=== PATIENT | male | born 1985 | race Caucasian/White ===

== ENCOUNTER 2021-04-15 12:42 | Emergency (ER) | payer MEDICAID, SELFPAY ==
--- NOTE | 2021-04-15 | ECG_ITS ---
Test Reason : CHEST PAIN Blood Pressure : / mmHG Vent. Rate : 061 BPM Atrial Rate : 061 BPM P-R Int : 126 ms QRS Dur : 104 ms QT Int : 390 ms P-R-T Axes : 031 051 033 degrees QTc Int : 392 ms Normal sinus rhythm with sinus arrhythmia Normal ECG No previous ECGs available Referred By: Generic ED Physician Electronically Signed By:KOSTA FRANKLIN
--- NOTE | ~2021-04-15 | XR_ITS ---
EXAMINATION: XR CHEST CLINICAL INFORMATION: Chest pain COMPARISON: None TECHNIQUE: 2 views of the chest were obtained. FINDINGS: No significant abnormality is noted involving the heart, lungs, mediastinum, bony thorax or soft tissues. XR/XR chest 2V IMPRESSION: Unremarkable examination.
[2021-04-15 12:45] VITALS: BP 126/70; PULSE 64; RESP 16; TEMP 36.6; O2SAT 98; BMI 38.0
[2021-04-15 15:59] LABS: MANUAL DIFF FLAG NO
[2021-04-15 16:06] LABS: Basophils Absolute Auto 0.1 X10*3/uL (0.0-0.2); Basophils Percent Auto 0.5 % (0-2); Eosinophils Absolute Auto 0.1 X10*3/uL (0.0-0.4); Eosinophils Percent Auto 1.3 % (0-4); Hemoglobin 15.2 g/dl (14.0-18.0); Imm Gran Abs Auto 0.04 X10*3/uL (0.00-0.03); Imm Gran Pct Auto 0.4 % (0.0-0.4); Lymphocytes Absolute Auto 3.2 X10*3/uL (1.2-4.9); Lymphocytes Percent Auto 30.5 % (20-40); Mean Corpuscular Hemoglobin 28.5 pg (27.0-33.0); Mean Corpuscular Volume 86.3 fL (80-98); Mean Platelet Volume 8.7 fL (9.4-12.4); Monocytes Absolute Auto 0.7 X10*3/uL (0.1-1.2); Monocytes Percent Auto 6.7 % (2-11); Neutrophils Absolute Auto 6.4 X10*3/uL (2.0-8.3); Neutrophils Percent Auto 60.6 % (45-73); Platelet Count 388 X10*3/uL (160-400); Red Blood Count 5.33 X10*6/uL (4.60-5.80); Red Cell Distribution Width 14.6 % (11.0-16.0); White Blood Count 10.5 X10*3/uL (4.8-10.8)
[2021-04-15 16:19] LABS: Alanine Aminotransferase 34 U/L (0-40); Albumin Level 4.3 g/dL (3.5-5.0); Alkaline Phosphatase 58 U/L (39-117); Anion Gap 11 (12-20); Aspartate Amino Transferase 20 U/L (5-37); Bilirubin Total 0.4 mg/dL (0.0-1.0); Blood Urea Nitrogen 10 mg/dL (9-16); Calcium 9.6 mg/dL (8.4-10.2); Carbon Dioxide 28 mmol/L (22-29); Chloride 104 mmol/L (96-108); Creatinine Clr Calc Pharmacy 148.2; Estimated Glomerular Filt Rate > 60; Glucose Random 99 mg/dL (60-115); Potassium 4.8 mmol/L (3.3-5.1); Sodium 138 mmol/L (135-145); Total Protein 7.4 g/dL (6.5-8.0)
--- NOTE | 2021-04-15 16:43 | ED.DIZZY ---
HPI - Dizziness General Chief Complaint: Dizziness Stated Complaint: dizziness Time Seen by Provider: 04/15/21 16:16 Source: patient Mode of arrival: ambulatory Limitations: no limitations History of Present Illness HPI Narrative: 35 yo male here with complaints of dizziness since 0100. Woke up in the night and felt dizzy. Went back to bed and woke with continued dizziness. Worsened with head movement, bending over and laying flat. +nausea. No vomiting, headache, vision changes, neck pain. No recent illness. Also c/o right sided chest discomfort with associated numbness intermittent x months. No associated cough, SOB, fevers, chills, leg swelling/pain. Worsened with position changes, palpation. Related Data Previous Rx's Medication Instructions Recorded meclizine 25 mg tablet 25 mg PO TID PRN #14 tab 04/15/21 Allergies Allergy/AdvReac Type Severity Reaction Status Date / Time No Known Allergies Allergy Unverified 04/10/20 15:30 [No Known Allergies*] Review of Systems Review of Systems: Yes all other systems are reviewed and are negative Constitutional: Constitutional: Reports no additional constitutional complaints, Denies body ache(s), Denies chills, Denies fever(s), Denies headache(s) and Denies weakness Eyes: Eyes: Reports no additional eye complaints and Denies change in vision ENT: Reports system reviewed and no additional complaints, except as documented, Reports dizziness, Denies headache(s), Denies nasal congestion, Denies nasal discharge and Denies neck pain Cardiovascular: Cardiovascular: Reports no additional cardiovascular complaints, Reports chest pain, Denies leg edema and Denies dyspnea Respiratory: Respiratory: Reports no additional respiratory complaints, Denies cough and Denies dyspnea Gastrointestinal: Gastrointestinal: Reports no additional gastrointestinal complaints, Denies abdominal pain, Denies diarrhea, Denies nausea and Denies vomiting Genitourinary: Genitourinary: Denies urinary incontinence Musculoskeletal: Musculoskeletal: Reports no additional musculoskeletal complaints, Denies back pain, Denies arthralgias, Denies joint swelling, Denies neck pain, Denies numbness and Denies tingling Integumentary/Breasts: Skin/Breast: Reports system reviewed and no additional complaints, except as docu and Denies rash Neurologic: Reports system reviewed and no additional complaints, except as documented, Denies Abnormal speech present, Reports dizziness, Denies headache(s), Denies numbness, Denies tingling and Denies weakness [facility] Past Medical History Attestation statement: The following information was validated with the patient. Source: old records reviewed and nursing notes reviewed Social History Social History Alcohol intake: unknown Patient Tobacco Use Status: Tobacco use Unknown Advance Directives: No Advance Directives Information Provided: No Physical Exam Vital Signs: Vital Signs: Last Vital Signs Temp 98 F 04/15/21 12:45 Pulse 63 04/15/21 18:00 Resp 18 04/15/21 16:57 BP 103/67 04/15/21 18:00 Pulse Ox 99 04/15/21 18:00 Body Mass Index 38.0 Const: General: cooperative, healthy appearing, comfortable and no acute distress Orientation/consciousness: patient oriented x3 Limitations: no limitations HENMT: Head: Yes normal to inspection Ears: hearing grossly normal bilaterally and TM's normal bilaterally General nose exam: Normal external nose present Face and sinus: Yes normal facial exam Mouth: Normal oral and palatal mucosa present Throat: Yes posterior oropharynx normal Eyes: General: appearance normal, both eyes and all related structures Visual Bella: normal visual bella by confrontation Alignment and Position: alignment normal Periorbital: periorbital findings normal Eyelids: Yes eyelids normal Conjunctivae: conjunctivae normal Sclerae: sclerae normal Corneas: corneas normal Pupils: Equal, round and reactive pupils present EOM: EOMs intact bilaterally Direct Ophthalmoscopy: normal light reflex and no photophobia Neck: Neck: Yes normal visual inspection Chest: Chest palpation & inspection: normal inspection of the chest Resp: Effort & Inspection: normal respiratory effort Auscultation: clear to auscultation bilaterally Cardio: Rate: regular rate Rhythm: regular rhythm Peripheral pulses: Peripheral pulses 2+ throughout GI: Inspection: Yes normal to inspection Palpation (GI): Soft to palpation and nontender Auscultation: normal bowel sounds Back/Spine/Pelvis: Thoracic/Lumbar Spine: thoracic and lumbar spine normal to inspection Skin: General skin exam: no rashes or lesions noted Neuro: Other: dizziness reproduced by movement of head from right to left General: patient oriented x3, no focal motor deficits and normal sensation to monofilament Cranial nerves: Yes CN's II-XII intact bilaterally, Yes Equal, round and reactive pupils present, Yes Bilaterally intact EOM present, Yes Normal facial strength present and Yes Midline tongue present Cognition (Neuro): normal cognition Speech: No Abnormal speech present Gait exam (Neuro): Normal gait present Motor exam (neuro): 5/5 motor strength present throughout Sensory Exam: Normal double simultaneous stimulation for sensation Coordination: [id number] test normal, [id number] test normal and tandem gait normal Extrem: General: Yes normal to inspection Course Course Course Narrative: 35 yo male here with complaints of dizziness with head movement, bending over since 0100. Normal neuro exam. HD stable. Likely vertigo. Trial meclizine. Also right sided chest discomfort more MS seeming based on HPI for months. Will check EKG, labs, CXR. 1800-patient feels like his dizziness is improved. He was able to ambulate without any reproducible symptoms. Chest x-ray, labs and EKG unremarkable. ? Costochondritis. Symptoms for greater than several weeks. Patient can follow up with his primary doctor. Reviewed worrisome signs/symptoms and when to return to Ed. Comfortable with discharge home. MDM - Dizziness MDM Narrative Medical decision making narrative: less likely ACS with symptoms for months normal ekg, troponin, atypical chest pain less likely CVA with atypical symptoms, normal neuro exam, symptoms improved with meclizine Medical Records Attestation: I reviewed the patient's medical records. Lab Data Attestation: I reviewed the patient's lab results. Result diagrams: 04/15/21 15:40 04/15/21 15:40 Labs: Lab Results 04/15/21 04/15/21 04/15/21 Range/Units 15:40 15:40 17:07 WBC 10.5 (4.8-10.8) X10*3/uL RBC 5.33 (4.60-5.80) X10*6/uL Hgb 15.2 (14.0-18.0) g/dl Hct 46.0 (42-52) % MCV 86.3 (80-98) fL MCH 28.5 (27.0-33.0) pg MCHC 33.0 (31.0-36.0) g/dl RDW 14.6 (11.0-16.0) % Plt Count 388 (160-400) X10*3/uL MPV 8.7 L (9.4-12.4) fL Immature Gran % (Auto) 0.4 (0.0-0.4) % Neut % (Auto) 60.6 (45-73) % Lymph % (Auto) 30.5 (20-40) % [place] % (Auto) 6.7 (2-11) % Eos % (Auto) 1.3 (0-4) % Baso % (Auto) 0.5 (0-2) % Lymph # (Auto) 3.2 (1.2-4.9) X10*3/uL [place] # (Auto) 0.7 (0.1-1.2) X10*3/uL Eos # (Auto) 0.1 (0.0-0.4) X10*3/uL Baso # (Auto) 0.1 (0.0-0.2) X10*3/uL Abs Immat Gran (auto) 0.04 H (0.00-0.03) X10*3/uL Absolute Neuts (auto) 6.4 (2.0-8.3) X10*3/uL Absolute Nucleated RBC 0.000 (0.0-0.012) X10*3/uL Nucleated RBC % (auto) 0.0 (0.0-0.2) /100WBC Sodium 138 (135-145) mmol/L Potassium 4.8 (3.3-5.1) mmol/L Chloride 104 (96-108) mmol/L Carbon Dioxide 28 (22-29) mmol/L Anion Gap 11 L (12-20) BUN 10 (9-16) mg/dL Creatinine 0.85 (0.5-1.4) mg/dL Estim Creat Clear Calc 148.2 Estimated GFR > 60 Random Glucose 99 (60-115) mg/dL Calcium 9.6 (8.4-10.2) mg/dL Total Bilirubin 0.4 0.4 (0.0-1.0) mg/dL Direct Bilirubin 0.2 (0.0-0.5) mg/dL AST 20 18 (5-37) U/L ALT 34 32 (0-40) U/L Alkaline Phosphatase 58 53 (39-117) U/L Troponin I High Sens (<3.5-35.0) ng/L Total Protein 7.4 7.0 (6.5-8.0) g/dL Albumin 4.3 4.1 (3.5-5.0) g/dL 04/15/21 Range/Units 17:07 WBC (4.8-10.8) X10*3/uL RBC (4.60-5.80) X10*6/uL Hgb (14.0-18.0) g/dl Hct (42-52) % MCV (80-98) fL MCH (27.0-33.0) pg MCHC (31.0-36.0) g/dl RDW (11.0-16.0) % Plt Count (160-400) X10*3/uL MPV (9.4-12.4) fL Immature Gran % (Auto) (0.0-0.4) % Neut % (Auto) (45-73) % Lymph % (Auto) (20-40) % [place] % (Auto) (2-11) % Eos % (Auto) (0-4) % Baso % (Auto) (0-2) % Lymph # (Auto) (1.2-4.9) X10*3/uL [place] # (Auto) (0.1-1.2) X10*3/uL Eos # (Auto) (0.0-0.4) X10*3/uL Baso # (Auto) (0.0-0.2) X10*3/uL Abs Immat Gran (auto) (0.00-0.03) X10*3/uL Absolute Neuts (auto) (2.0-8.3) X10*3/uL Absolute Nucleated RBC (0.0-0.012) X10*3/uL Nucleated RBC % (auto) (0.0-0.2) /100WBC Sodium (135-145) mmol/L Potassium (3.3-5.1) mmol/L Chloride (96-108) mmol/L Carbon Dioxide (22-29) mmol/L Anion Gap (12-20) BUN (9-16) mg/dL Creatinine (0.5-1.4) mg/dL Estim Creat Clear Calc Estimated GFR Random Glucose (60-115) mg/dL Calcium (8.4-10.2) mg/dL Total Bilirubin (0.0-1.0) mg/dL Direct Bilirubin (0.0-0.5) mg/dL AST (5-37) U/L ALT (0-40) U/L Alkaline Phosphatase (39-117) U/L Troponin I High Sens < 3.5 (<3.5-35.0) ng/L Total Protein (6.5-8.0) g/dL Albumin (3.5-5.0) g/dL Imaging Data Chest x-ray: Attestation: I personally reviewed and interpreted this imaging study as follows: Radiologist's impression: [address] [address] XRay Report Signed Patient: Zechariah Lacey MR#: [id number] : 1985 Acct:[id number] Age/Sex: 35 / M ADM Date: 04/15/21 Loc: .ED Attending Dr: Ordering Physician: Phyllis Real NP Date of Service: 04/15/21 Procedure(s): XR chest 2V Accession Number(s): [id number] cc: Phyllis Real NP~ EXAMINATION: XR CHEST CLINICAL INFORMATION: Chest pain COMPARISON: None TECHNIQUE: 2 views of the chest were obtained. FINDINGS: No significant abnormality is noted involving the heart, lungs, mediastinum, bony thorax or soft tissues. XR/XR chest 2V IMPRESSION: Unremarkable examination. Discharge Plan Discharge Clinical Impression: Benign paroxysmal positional vertigo, Chest pain, atypical Patient Disposition: Home, Self-Care Instructions: Benign Paroxysmal Positional Vertigo (ED), Chest Wall Pain (ED) Additional Instructions: Change positions slowly Increase fluids at home Follow-up with primary care doctor Prescriptions: New meclizine 25 mg tablet 25 mg PO TID PRN (Reason: dizziness) Qty: 14 RF: 0 Referrals: Physician,None [Primary Care Provider] - 2 days Interventions: ED Discharge Assessment Last Done: 04/15/21 18:03 Discharge Date/Time: 04/15/21 18:04
[2021-04-15] MEDS: Meclizine HCl 25 MG TABLET 50 MG PO (16:47)
[2021-04-15 16:57] VITALS: BP 112/65; PULSE 57; RESP 18; O2SAT 97
[2021-04-15 17:35] LABS: Alanine Aminotransferase 32 U/L (0-40); Albumin Level 4.1 g/dL (3.5-5.0); Alkaline Phosphatase 53 U/L (39-117); Aspartate Amino Transferase 18 U/L (5-37); Bilirubin Direct 0.2 mg/dL (0.0-0.5); Bilirubin Total 0.4 mg/dL (0.0-1.0)
[2021-04-15 17:40] LABS: Troponin-I High Sensitivity < 3.5 ng/L (<3.5-35.0)
[2021-04-15 18:00] VITALS: BP 103/67; PULSE 63; O2SAT 99
== END 2021-04-15 18:04 | disposition home or self-care (01) ==
PROVIDERS: Nurse Practitioner Family; Emergency Provider Student in an Organized Health Care Education/Training Program
DX: H81.13 Benign paroxysmal vertigo, bilateral (principal); R07.89 Other chest pain; Z79.899 Other long term (current) drug therapy
CPT/HCPCS: 36415; 71046; 80053; 80076; 82248; 84484; 85025; 93005; 99283; 99284

== ENCOUNTER 2024-07-24 11:13 | Emergency (ER) | payer SELFPAY ==
--- NOTE | ~2024-07-24 | XR_ITS ---
EXAMINATION: XR CHEST CLINICAL INFORMATION: chest pain COMPARISON: Chest 04/15/2021 TECHNIQUE: 2 views of the chest were obtained. FINDINGS: The lungs are well-expanded and clear. The heart size and pulmonary vascularity is normal. There is mild dextroscoliosis. No gross bony abnormality seen. XR/XR chest 2V IMPRESSION: Mild dextroscoliosis. No acute cardiopulmonary process seen. Electronically signed by: Clyde Keys MD 07/24/2024 12:14 PM EST
--- NOTE | 2024-07-24 11:16 | ECG_ITS ---
Test Reason : CHEST TIGHTNESS Blood Pressure : / mmHG Vent. Rate : 093 BPM Atrial Rate : 093 BPM P-R Int : 124 ms QRS Dur : 092 ms QT Int : 332 ms P-R-T Axes : 040 049 013 degrees QTc Int : 412 ms Normal sinus rhythm with sinus arrhythmia Normal ECG When compared with ECG of 15-APR-2021 13:04, Vent. rate has increased BY 32 BPM Referred By: Yaima Price Electronically Signed By:BIBIANA CUNNINGHAM MD
--- NOTE | 2024-07-24 11:25 | ED.GENADULT ---
HPI - General Adult General Chief complaint: General Medical Stated complaint: Chest tightness, L arm numbness Time Seen by Provider: 07/24/24 18:37 Source: patient Mode of arrival: ambulatory Limitations: no limitations History of Present Illness ED Provider: RADHA SMITH narrative: 38 yo male with no PMH here with c/o dizziness and thinking about stressful events then he feels tingling in his arms and tired. He has no ti chest pain. He has not traveled recently or had any URI, no recent procedures. He notes he doens't sleep well and is stressed out. He went to [facility] last week with same complaint, labs, CXR, EKG normal and he notes he has had same episodes always when he thinks about some event that he did not elaborate on. He has a supportive and kids. No prior dx of any issues and does not go to the doctor MD complaint: intermittent episodes when thinking about episodes Onset (ago): week(s) (1) Radiation: non-radiation Severity: mild Relieving factors: none Exacerbating factors: other (stress) Associated symptoms: denies other symptoms Treatments prior to arrival: none Related Data Previous Rx's ?Medication ?Instructions ?Recorded meclizine 25 mg tablet 25 mg PO TID PRN dizziness #14 tabs 07/21/23 hydroxyzine HCl 25 mg tablet 25 mg PO Q8H PRN anxiety #30 tabs 07/24/24 trazodone 50 mg tablet 25 mg (1/2 x 50 mg) PO BEDTIME PRN 07/24/24 sleep #30 tabs Allergies Allergy/AdvReac Type Severity Reaction Status Date / Time No Known Allergies Allergy Unverified 07/24/24 11:29 [No Known Allergies*] Review of Systems Review of Systems: Constitutional : No Fever, No Chills, No Fatigue ENT/Mouth : No sore throat, No Rhinorrhea Eyes: No Eye Pain, No Swelling, No Redness Cardiovascular : No Chest Pain, pos SOB, No Dyspnea on Exertion Respiratory : No Cough, No Sputum Gastrointestinal : No Nausea, No Vomiting, No Diarrhea, No abdominal Pain Genitourinary : No Dysuria, No Urinary Frequency, No Hematuria, Musculoskeletal : No joint pain, No Myalgias, No Joint Swelling Skin : No Skin Lesions, No rash Neuro : No Weakness, No Numbness, pos Dizziness, no Headache Psych : pos Anxiety/Panic, No Depression All other systems reviewed and are negative [facility]LY [facility] Past Medical History Attestation statement: The following information was validated with the patient. Source: old records reviewed Medical History (Updated 07/24/24 @ 19:23 by Tanisha Goodman DO) No pertinent past medical history Social History Social History Alcohol intake: unknown Patient Tobacco Use Status: Tobacco use Unknown Smoked in Last 30 Days: No Use of substances other than those prescribed or required for medical reasons: No Advance Directives: No Physical Exam ED Vital Signs: Vital Signs - 24 hr 07/24/24 11:26 07/24/24 18:50 07/24/24 18:51 Temperature 98.2 F 98.2 F Pulse Rate 96 55 62 Respiratory Rate 20 12 13 Blood Pressure 134/83 122/74 116/72 Pulse Oximetry 98 100 99 Oxygen Delivery Method Room Air Room Air Room Air BMI result Body Mass Index 38.4 Appearance: Alert. Oriented X3. No acute distress. Eyes: Pupils equal, round and reactive to light. ENT: Pharynx normal. Neck: Normal inspection. Neck supple. CVS: Normal heart rate and rhythm. Pulses normal. distal pulses intact, symmetric BPs Respiratory: No respiratory distress. Breath sounds normal. Abdomen: Soft and nontender. Skin: Skin warm and dry. Normal skin color. Extremities: No lower extremity edema. Neuro: Oriented X 3. No motor deficit. No sensory deficit. Course Course Course Narrative: This is a rapid medical exam performed by Omar Price NP: Additional HPI, ROS, PE not included below will be deferred to primary provider. Patient is a 38-year-old male presenting to the ED with complaint of chest tightness, lightheadedness, bilateral arm tingling for over a week. Seen at [facility] for same, advised his symptoms were due to anxiety. Plan: EKG, labs, CXR Medical Decision Making Medical Decision Making MDM Narrative: 38 yo male with no PMH does not see a doctor now here with c/o anxiety episodes triggered by thinking about event - has associated chest pain with it and feels off at this time will need basic labs, EKG, troponin, CXR, he has symmetric pulses doubt dissection, VTE negative. Differential Diagnosis Differential Diagnoses: The differential diagnosis associated with the presentation includes anxiety, atypical chest pain, sleep disorder Admission/Observation Consideration of admission/observation: Escalation of care including admission/observation considered work up negative stable for DC at this time will start on atarax and trazodone with precautions Lab Data MDM Lab Attestation statement: I reviewed the patient's lab results. 07/24/24 11:59 07/24/24 11:59 Labs: Lab Results 07/24/24 Range/Units 11:59 WBC 12.2 H (4.8-10.8) X10*3/uL RBC 5.46 (4.60-5.80) X10*6/uL Hgb 15.3 (14.0-18.0) g/dl Hct 46.2 (42.0-52.0) % MCV 84.6 (80.0-98.0) fL MCH 28.0 (27.0-33.0) pg MCHC 33.1 (31.0-36.0) g/dl RDW 14.3 (11.0-16.0) % Plt Count 448 H (160-400) X10*3/uL MPV 8.6 L (9.4-12.4) fL Immature Gran % (Auto) 0.5 H (0.0-0.4) % Neut % (Auto) 75.5 H (45-73) % Lymph % (Auto) 14.5 L (20-40) % [place] % (Auto) 7.8 (2-11) % Eos % (Auto) 1.0 (0-4) % Baso % (Auto) 0.7 (0-2) % Lymph # (Auto) 1.8 (1.2-4.9) X10*3/uL [place] # (Auto) 1.0 (0.1-1.2) X10*3/uL Eos # (Auto) 0.1 (0.0-0.4) X10*3/uL Baso # (Auto) 0.1 (0.0-0.2) X10*3/uL Abs Immat Gran (auto) 0.06 H (0.00-0.03) X10*3/uL Absolute Neuts (auto) 9.2 H (2.0-8.3) x10*3/uL Absolute Nucleated RBC 0.000 (0.0-0.012) X10*3/uL Nucleated RBC % (auto) 0.0 (0.0-0.2) /100WBC PT 11.6 (10.9-12.4) SEC INR 1.0 (0.9-1.1) Sodium 139 (135-145) mmol/L Potassium 4.0 (3.3-5.1) mmol/L Chloride 107 (96-108) mmol/L Carbon Dioxide 26 (22-29) mmol/L Anion Gap 10 L (12-20) BUN 9 (9-16) mg/dL Creatinine 0.84 (0.5-1.4) mg/dL Estim Creat Clear Calc 151.1 Estimated GFR > 60 Random Glucose 96 (60-115) mg/dL Calcium 9.4 (8.4-10.2) mg/dL Total Bilirubin 0.4 (0.0-1.0) mg/dL AST 22 (5-37) U/L ALT 28 (0-40) U/L Alkaline Phosphatase 64 (39-117) U/L Troponin I High Sens < 2.7 (<3.5-35.0) ng/L Total Protein 7.9 (6.5-8.0) g/dL Albumin 4.3 (3.5-5.0) g/dL Independent Interpretation I performed an independent interpretation of an: EKG and Plain X-Ray (normal) Interpretation: Rate: 93 Rhythm: NSR [place]: normal Normal P waves. Normal KINDRA. Normal QRS complex. ST T wave : no SARI, inverted t wave III qTC:412 prior studies: no acute ischemia The study has been interpreted contemporaneously by me. . Radiology Impression Discussion of test interpretation with radiology: I have reviewed the radiologist's reading. Independent Historian Clinical information obtained from an independent historian. History obtained from or confirmed by: Spouse Prescription Management I considered prescription management with: Other Discharge Plan Discharge Clinical Impression: Heart palpitations, Paresthesia, Sleep disorder Patient Disposition: Home, Self-Care Instructions: Heart Palpitations (ED), Paresthesia (ED) Additional Instructions: labs reassuring EKG reassuring chest xray is normal follow up with primary care doctor please for sleep apnea and further workup you need to get routine regular care Prescriptions: New trazodone 50 mg tablet 25 mg PO BEDTIME PRN (Reason: sleep) Qty: 30 0RF hydroxyzine HCl 25 mg tablet 25 mg PO Q8H PRN (Reason: anxiety) Qty: 30 0RF No Action meclizine 25 mg tablet 25 mg PO TID PRN (Reason: dizziness) Qty: 14 0RF Stand Alone Forms: Work/School Release Print Language: Croatian
[2024-07-24 11:26] VITALS: BP 134/83; PULSE 96; RESP 20; TEMP 36.8; O2SAT 98; BMI 38.4
[2024-07-24 12:03] LABS: MANUAL DIFF FLAG NO
[2024-07-24 12:07] LABS: Basophils Absolute Auto 0.1 X10*3/uL (0.0-0.2); Basophils Percent Auto 0.7 % (0-2); Eosinophils Absolute Auto 0.1 X10*3/uL (0.0-0.4); Hematocrit 46.2 % (42.0-52.0); Hemoglobin 15.3 g/dl (14.0-18.0); Imm Gran Abs Auto 0.06 X10*3/uL (0.00-0.03); Imm Gran Pct Auto 0.5 % (0.0-0.4); Lymphocytes Absolute Auto 1.8 X10*3/uL (1.2-4.9); Lymphocytes Percent Auto 14.5 % (20-40); Mean Corpuscular HGB Conc 33.1 g/dl (31.0-36.0); Mean Corpuscular Volume 84.6 fL (80.0-98.0); Mean Platelet Volume 8.6 fL (9.4-12.4); Monocytes Percent Auto 7.8 % (2-11); Neutrophils Absolute Auto 9.2 x10*3/uL (2.0-8.3); Neutrophils Percent Auto 75.5 % (45-73); Platelet Count 448 X10*3/uL (160-400); Red Blood Count 5.46 X10*6/uL (4.60-5.80); Red Cell Distribution Width 14.3 % (11.0-16.0); White Blood Count 12.2 X10*3/uL (4.8-10.8)
[2024-07-24 12:11] LABS: Prothrombin Time 11.6 SEC (10.9-12.4)
[2024-07-24 12:23] LABS: Alanine Aminotransferase 28 U/L (0-40); Albumin Level 4.3 g/dL (3.5-5.0); Alkaline Phosphatase 64 U/L (39-117); Anion Gap 10 (12-20); Aspartate Amino Transferase 22 U/L (5-37); Bilirubin Total 0.4 mg/dL (0.0-1.0); Blood Urea Nitrogen 9 mg/dL (9-16); Calcium 9.4 mg/dL (8.4-10.2); Carbon Dioxide 26 mmol/L (22-29); Chloride 107 mmol/L (96-108); Creatinine Clr Calc Pharmacy 151.1; Estimated Glomerular Filt Rate > 60; Glucose Random 96 mg/dL (60-115); Sodium 139 mmol/L (135-145); Total Protein 7.9 g/dL (6.5-8.0)
[2024-07-24 12:29] LABS: Troponin-I High Sensitivity < 2.7 ng/L (<3.5-35.0)
[2024-07-24 18:50] VITALS: BP 122/74; PULSE 55; RESP 12; TEMP 36.8; O2SAT 100
[2024-07-24 18:51] VITALS: BP 116/72; PULSE 62; RESP 13; O2SAT 99
[2024-07-24 19:27] VITALS: BP 116/72; PULSE 62; RESP 13; TEMP 36.6; O2SAT 99
== END 2024-07-24 19:31 | disposition home or self-care (01) ==
PROVIDERS: Registered Nurse Emergency; Emergency Provider Emergency Medicine
DX: R07.89 Other chest pain (principal); R20.0 Anesthesia of skin; R42 Dizziness and giddiness; R00.2 Palpitations; R20.2 Paresthesia of skin; Z79.899 Other long term (current) drug therapy
CPT/HCPCS: 36415; 71046; 80053; 84484; 85025; 85610; 93005; 99283; 99284

== ENCOUNTER → 2024-07-24 11:16 | Outpatient (BNV) | payer SELFPAY | PROVIDERS: Visit Provider Internal Medicine Cardiovascular Disease | DX: R07.9 Chest pain, unspecified (principal) | CPT/HCPCS: 93010 ==

== ENCOUNTER → 2024-07-24 11:26 | Outpatient (BNV) | payer SELFPAY | PROVIDERS: Visit Provider Radiology Diagnostic Radiology | DX: R07.9 Chest pain, unspecified (principal) | CPT/HCPCS: 71046 ==

== ENCOUNTER 2024-11-02 13:16 | Emergency (ER) | payer OTHER, SELFPAY ==
[2024-11-02 13:18] VITALS: BP 111/58; PULSE 94; RESP 18; TEMP 36.4; O2SAT 96; BMI 40.6
--- NOTE | 2024-11-02 13:19 | ED_ITS ---
HPI - General Adult General Chief complaint: General Medical Stated complaint: tounge swelling Time Seen by Provider: 11/02/24 14:14 Source: patient Mode of arrival: ambulatory Limitations: no limitations History of Present Illness ED Provider: Lydia Cook PA-C HPI narrative: Patient is a 39 year old assigned male at with no reported medical history presenting to the emergency department today with tongue swelling after thera- flu and feeling generally unwell. Patient states that over the last 2 days he has felt generally unwell with URI symptoms and then today when he took thera- flu he began to feel like his tongue had swelling. Patient denies any dizziness, lightheadedness, abdominal pain, nausea, vomiting, fever, chills, blurry vision, double vision, loss of vision, chest pain, difficulty breathing, shortness of breath, back pain, night sweats, pain with urination, increased urinary frequency, increased urinary urgency, blood in his urine or stool, syncope or a near syncopal episode, recent trauma or falls, bowel incontinence, bladder incontinence, or any other complaints at this time. Relieving factors: none Exacerbating factors: none Associated symptoms: denies other symptoms Related Data Previous Rx's ?Medication ?Instructions ?Recorded meclizine 25 mg tablet 25 mg PO TID PRN dizziness #14 tabs 07/21/23 hydroxyzine HCl 25 mg tablet 25 mg PO Q8H PRN anxiety #30 tabs 07/24/24 trazodone 50 mg tablet 25 mg (1/2 x 50 mg) PO BEDTIME PRN 07/24/24 sleep #30 tabs penicillin V potassium 500 mg 500 mg PO BID 10 days #20 tabs 11/02/24 tablet Allergies Allergy/AdvReac Type Severity Reaction Status Date / Time No Known Allergies Allergy Verified 11/02/24 13:21 [No Known Allergies*] Review of Systems 2 Constitutional: Constitutional: Reports no additional constitutional complaints, Denies chills, Denies fever(s) and Denies night sweats Eyes: Eyes: Reports no additional eye complaints, Denies blurry vision, Denies change in vision, Denies diplopia, Denies eye discharge, Denies loss of vision and Denies eye pain ENT: Denies dizziness Comments: subjective tongue swelling Cardiovascular: Cardiovascular: Reports no additional cardiovascular complaints, Denies chest pain, Denies lightheadedness, Denies Loss of Consciousness and Denies dyspnea Respiratory: Respiratory: Reports no additional respiratory complaints and Denies dyspnea Gastrointestinal: Gastrointestinal: Reports no additional gastrointestinal complaints, Denies abdominal pain, Denies melena, Denies hematochezia, Denies change in bowel habits and Denies change in stool character Genitourinary: Genitourinary: Reports no additional male genitourinary complaints, Denies hematuria, Denies oliguria, Denies difficulty urinating, Denies dysuria, Denies urinary frequency, Denies urinary hesitancy, Denies urinary incontinence and Denies urinary urgency Musculoskeletal: Musculoskeletal: Reports no additional musculoskeletal complaints, Denies numbness and Denies tingling Neurologic: Denies dizziness, Denies loss of vision, Denies numbness and Denies tingling Psychiatric: Psychiatric: Reports no additional psychiatric complaints Endocrine: Endocrine: Reports no additional endocrine complaints Hematologic/Lymphatic: Hematologic/Lymphatic: Reports no additional hematologic/lymphatic complaints Allergic/Immunologic: Allergic/Immunologic: Reports no additional allergic/immunologic complaints [facility] Past Medical History Attestation statement: The following information was validated with the patient. Source: old records reviewed and nursing notes reviewed Medical History No pertinent past medical history Social History Social History Alcohol intake: unknown Patient Tobacco Use Status: Tobacco use Unknown Smoked in Last 30 Days: No Use of substances other than those prescribed or required for medical reasons: No Advance Directives: No Advance Directives Information Provided: Yes Physical Exam ED Vital Signs: Vital Signs - 24 hr 11/02/24 13:18 11/02/24 14:22 11/02/24 17:07 Temperature 97.6 F 98.6 F Pulse Rate 94 69 62 Respiratory Rate 18 16 18 Blood Pressure 111/58 L 121/67 125/78 Pulse Oximetry 96 97 97 Oxygen Delivery Method Room Air Room Air Room Air 11/02/24 17:09 Temperature 98.6 F Pulse Rate 62 Respiratory Rate 18 Blood Pressure 125/78 Pulse Oximetry 97 Oxygen Delivery Method Room Air BMI result Body Mass Index 40.6 Const General: cooperative, no acute distress, alert and awake Nutritional Appearance: well nourished Orientation/consciousness: patient oriented x3 Limitations: no limitations HENMT Head: Yes normal to inspection and Yes atraumatic Ears: hearing grossly normal bilaterally and external ears normal General nose exam: Normal external nose present, no nasal discharge noted and no epistaxis Face and sinus: Yes normal facial exam, No abrasion and No laceration Mouth: Normal oral and palatal mucosa present, no drooling and no muffled voice Eyes General: appearance normal, both eyes and all related structures Periorbital: periorbital findings normal Eyelids: Yes eyelids normal Conjunctivae: conjunctivae normal Pupils: Equal, round and reactive pupils present EOM: EOMs intact bilaterally Neck Neck: Yes normal visual inspection, Yes full ROM and Yes no lymphadenopathy Chest Chest palpation & inspection: normal inspection of the chest Resp Effort & Inspection: normal respiratory effort and able to speak in complete sentences GI Inspection: Yes normal to inspection Neuro General: patient oriented x3, moves all extremities and CN's II-XI intact bilaterally Cranial nerves: Yes Equal, round and reactive pupils present Cognition (Neuro): normal cognition Extrem General: Yes normal to inspection, Yes full ROM and Yes capillary refill normal Psych Appearance: grossly normal Mental Status: mental status grossly normal Affect: normal affect Attitude: cooperative Thought process: Normal thought process present Thought content: Normal thought content present Insight: Good insight present (Psych) Course Course Course Narrative: This is an RME performed by Maria Luisa Gannon CNP: Additional HPI, ROS, PE not included below will be deferred to primary provider. Patient is a 39-year-old male who presents emergency department for evaluation. He reports that he was feeling a little unwell over the past couple of days mild cold-like symptoms. Reports that this morning he began with a sensation of swelling to his tongue, no known allergens. Additionally, he states since this started his right foot was swollen and itchy as well. He denies any recent fevers or chills. Admits that he did take TheraFlu this morning, soon after he felt the swelling to his tongue. Does not take any routine medications. Tongue does appear enlarged, no swelling to the lips, has erythematous posterior oropharynx No hoarseness, drooling, or stridor. Plan: Given onset after taking TheraFlu, will trial Benadryl and famotidine, lower suspicion that this is an acute allergic reaction in addition will obtain viral serologies and group a strep Medications Administered Discontinued Medications Generic Name Dose Route Start Last Admin Trade Name Freq PRN Reason Stop Dose Admin Dexamethasone Sodium Phosphate 10 mg 11/02/24 14:34 11/02/24 15:17 Dexamethasone Sod Phosphate 10 Mg/Ml Vial PO 11/02/24 14:35 10 mg ONCE ONE Administration Diphenhydramine HCl 50 mg 11/02/24 13:24 11/02/24 13:27 Diphenhydramine Hcl 25 Mg Capsule PO 11/02/24 13:25 50 mg ONCE ONE Administration Famotidine 20 mg 11/02/24 13:24 11/02/24 13:27 Famotidine 20 Mg Tablet PO 11/02/24 13:25 20 mg ONCE ONE Administration Penicillin V Potassium 500 mg 11/02/24 14:34 11/02/24 15:17 Penicillin V Potassium 250 Mg Tablet PO 11/02/24 14:35 500 mg ONCE ONE Administration Medical Decision Making Medical Decision Making [facility] Narrative: Patient is a 39 year old assigned male at with no reported medical history presenting to the emergency department today with tongue swelling after thera- flu and feeling generally unwell. Patient's physical exam was unremarkable. Patient's blood work showed a chronically elevated WBC count of 12.2. Patient's urine showed no acute process. Patient's EKG was unremarkable. Patient's strep test was positive. I explained my physical exam findings as well as all test results to the patient. I answered all questions asked by the patient. I stressed the importance of the patient taking his medication as directed (either prescribed or as the over the counter packaging recommends). I stressed the importance of the patient following up with his primary care provider. I stressed the importance of the patient returning to the emergency department immediately if his symptoms were to worsen or if he were to develop any dizziness, shortness of breath, difficulty breathing, chest pain, blurry vision, loss of vision, nausea, vomiting, abdominal pain, fever, chills, back pain, or any other complaints. Patient verbalized agreement and understanding with this treatment plan and discharge. Differential Diagnosis Differential Diagnoses: The differential diagnosis associated with the presentation includes Stre pharyngitis Viral illness Admission/Observation Consideration of admission/observation: Escalation of care including admission/observation considered Patient would have been admitted to the hospital had his work up had any findings where hospital admission was appropriate and his clinical presentation warranted hospital admission. Lab Data [facility] Lab Attestation statement: I reviewed the patient's lab results. My interpretation of these results are in the MDM Rationale portion of this note. 11/02/24 15:16 11/02/24 15:16 Labs: Lab Results 11/02/24 11/02/24 Range/Units 13:43 15:16 WBC 12.2 H (4.8-10.8) X10*3/uL RBC 5.25 (4.60-5.80) X10*6/uL Hgb 15.0 (14.0-18.0) g/dl Hct 44.5 (42.0-52.0) % MCV 84.8 (80.0-98.0) fL MCH 28.6 (27.0-33.0) pg MCHC 33.7 (31.0-36.0) g/dl RDW 14.1 (11.0-16.0) % Plt Count 378 (160-400) X10*3/uL MPV 8.8 L (9.4-12.4) fL Immature Gran % (Auto) 0.5 H (0.0-0.4) % Neut % (Auto) 77.7 H (45-73) % Lymph % (Auto) 12.8 L (20-40) % Dickinson % (Auto) 7.6 (2-11) % Eos % (Auto) 1.0 (0-4) % Baso % (Auto) 0.4 (0-2) % Lymph # (Auto) 1.6 (1.2-4.9) X10*3/uL Dickinson # (Auto) 0.9 (0.1-1.2) X10*3/uL Eos # (Auto) 0.1 (0.0-0.4) X10*3/uL Baso # (Auto) 0.1 (0.0-0.2) X10*3/uL Abs Immat Gran (auto) 0.06 H (0.00-0.03) X10*3/uL Absolute Neuts (auto) 9.5 H (2.0-8.3) x10*3/uL Absolute Nucleated RBC 0.000 (0.0-0.012) X10*3/uL Nucleated RBC % (auto) 0.0 (0.0-0.2) /100WBC Sodium 139 (135-145) mmol/L Potassium 4.3 (3.3-5.1) mmol/L Chloride 107 (96-108) mmol/L Carbon Dioxide 24 (22-29) mmol/L Anion Gap 12 (12-20) BUN 12 (9-16) mg/dL Creatinine 0.72 (0.5-1.4) mg/dL Estim Creat Clear Calc 174.4 Estimated GFR > 60 Random Glucose 105 (60-115) mg/dL Calcium 9.6 (8.4-10.2) mg/dL Total Bilirubin 0.4 (0.0-1.0) mg/dL AST 21 (5-37) U/L ALT 21 (0-40) U/L Alkaline Phosphatase 69 (39-117) U/L Troponin I High Sens < 2.7 (<3.5-35.0) ng/L B-Natriuretic Peptide 16 (<100) pg/mL Total Protein 7.6 (6.5-8.0) g/dL Albumin 4.1 (3.5-5.0) g/dL Influenza Type A (PCR) NEGATIVE (Negative) Influenza Type B (PCR) NEGATIVE (Negative) RSV RNA Qual (PCR) NEGATIVE (Negative) SARS-CoV-2 RNA (RT-PCR) NEGATIVE (Negative) S. pyogenes GrpA SHANNON Positive A (Negative) Independent Interpretation I performed an independent interpretation of an: EKG Interpretation: I independently interpreted this EKG and am in agreement with the below findings: Vent. Rate: 66 BPM Atrial Rate: 66 BPM P-R Int: 124 ms QRS Dur: 100 ms QT Int: 376 ms P-R-T Axes: 32 50 27 degrees QTcB Int: 394 ms Normal sinus rhythm Normal ECG When compared with ECG of 24-Jul-2024 11:28, No significant change was found DD/ [id number] Prescription Management I considered prescription management with: Antibiotic (patient prescribed an antibiotic for strep pharyngitis) Discharge Plan Discharge Clinical Impression: Strep pharyngitis Patient Disposition: Home, Self-Care Instructions: Pharyngitis (ED), Strep Throat (DC) Additional Instructions: Your work up today showed a strep pharyngitis infection but was otherwise unremarkable. THROW AWAY YOUR TOOTHBRUSH AFTER 24 HOURS OF BEING ON THE ANTIBIOTIC AND REPLACE IT WITH A NEW ONE. Follow up with your primary care provider. Return to the emergency department immediately if your symptoms worsen or if you develop any numbness, tingling, dizziness, shortness of breath, difficulty breathing, chest pain, blurry vision, loss of vision, nausea, vomiting, abdominal pain, fever, chills, back pain, or any other complaints. Please see the information below about our Patient Portal. If you are not yet enrolled in the [facility] Patient Portal, you will receive an enrollment email invitation following your visit to any [facility] setting. You may also self-enroll in the Patient Portal by visiting our website: [email or web address] The following information is required to access the Patient Portal: - Your [facility] Medical Record Number - Your personal home email address (must match what is in your electronic medical record, Registration staff can assist with this) - Name - Date of Capabilities of the Patient Portal: - Message some providers - View upcoming appointments - Access your health summary, medical history, and visit history - View current conditions and allergies - View procedure and lab results - View your medications, including guidelines, side effects, and precautions - Complete pre-appointment questionnaires requested by your provider - Ready summary reports of your office visits and procedures To access the Patient Portal Mobile [employer], follow these directions: - Search [facility] [employer] in the [employer] Store or [employer] - Download the [facility] - Search for [facility] - Enter your login/password Prescriptions: New penicillin V potassium 500 mg tablet 500 mg PO BID 10 Days Qty: 20 0RF No Action meclizine 25 mg tablet 25 mg PO TID PRN (Reason: dizziness) Qty: 14 0RF trazodone 50 mg tablet 25 mg PO BEDTIME PRN (Reason: sleep) Qty: 30 0RF hydroxyzine HCl 25 mg tablet 25 mg PO Q8H PRN (Reason: anxiety) Qty: 30 0RF Referrals: Man Oleary MD [Primary Care Provider] - Stand Alone Forms: Work/School Release Interventions: ED Discharge Assessment Last Done: 11/02/24 17:09 Discharge Date/Time: 11/02/24 17:10 Print Language: Urdu
[2024-11-02] MEDS: Famotidine 20 MG TABLET PO (13:27)
[2024-11-02] MEDS: diphenhydrAMINE HCL 25 MG CAPSULE 50 MG PO (13:27)
[2024-11-02 13:53] LABS: IDNOW Serial# 55D5AD1C; Strep A Nucleic Acid Positive (Negative)
[2024-11-02 14:22] VITALS: BP 121/67; PULSE 69; RESP 16; O2SAT 97
--- NOTE | 2024-11-02 14:34 | ECG_ITS ---
Test Reason : abd pain Blood Pressure : */* mmHG Vent. Rate : 66 BPM Atrial Rate : 66 BPM P-R Int : 124 ms QRS Dur : 100 ms QT Int : 376 ms P-R-T Axes : 32 50 27 degrees QTcB Int : 394 ms Normal sinus rhythm Normal ECG When compared with ECG of 24-Jul-2024 11:28, No significant change was found Referred By: Lydia Cook Electronically Signed By: Gui Mccain
[2024-11-02 14:36] LABS: Influenza A PCR NEGATIVE (Negative); Influenza B PCR NEGATIVE (Negative); Resp Syncy Virus RNA Qual PCR NEGATIVE (Negative); SARS COV2 PCR INHOUSE NEGATIVE (Negative)
--- OUTSIDE RECORDS SUMMARY | 2024-11-02 14:46 | XMS_ITS | Clinical Summary ---
Author Organization [facility] Address [address] [place] [address] Phone Care Team Providers Care Supply Analyst Name Role Phone Physician, No Pcp Primary Care Provider Unavaila ble Allergies No known active allergies Social History Tobacco Use Types Packs/Day Years Used Date Smoking Tobacco: Never Assessed Sex and Gender Information Value Date Recorded Sex Assigned at Not on file Legal Sex Male 5:04 PM EST Gender Identity Not on file Sexual Orientation Not on file Last Filed Vital Signs Vital Sign Reading Time Taken Comments Blood Pressure 116/59 07/14/2024 3:08 AM EST Pulse 65 07/14/2024 3:08 AM EST Temperature 36.5 ??C (97.7 ??F) 07/14/2024 3:08 AM ES T Respiratory Rate 18 07/14/2024 3:08 AM EST Oxygen Saturation 97% 07/14/2024 3:08 AM EST Inhaled Oxygen Concentration - - Weight 123 kg (271 lb 9.6 oz) 07/13/2024 5:09 PM EST Height 172.7 cm (5' 8 ) 07/13/2024 5:09 PM EST Body Mass Index 41.3 07/13/2024 5:09 PM EST Plan of Treatment Health Maintenance Due Date Last Done Comments COVID-19 Vaccine ( season) 2024 Influenza Vaccine (#1) 2024 Cholesterol Screening (Lipid Panel) 07/14/2024 Depression Screening 07/14/2024 HIV Screening 07/14/2024 Hepatitis C Screening 07/14/2024 Social Influencers of Health Screening 07/14/2024 DTaP,Tdap,and Td Vaccines (8 - Td or Tdap) 07/21/2027 07/21/2017, 05/17/2001, 07/24/1996, Additional history exists HIB Vaccines Completed 09/21/1990 MMR Vaccines Completed 09/21/1990, 10/22/1989 IPV Vaccines Completed 07/24/1996, 03/27, 05/24/1993, Additional history exists Meningococcal ACWY Vaccine Aged Out 12/11/2003 N o longer eligible based on patient's age to complete this topic Pneumococcal Vaccine: Pediatrics (0 to 5 Years) and At-Risk Patients (6 to 64 Years) Aged Out 12/11/2003 No longer eligible based on patient's age to complete this topic Hepatitis B Vaccines Completed 12/10/2004, 04/29/2003, 05/17/2001 HPV Vaccines Aged Out No longer eligi ble based on patient's age to complete this topic Hepatitis A Vaccines Aged Out No long er eligible based on patient's age to complete this topic Meningococcal B Vaccine Aged Out No l onger eligible based on patient's age to complete this topic RSV Immunization Patients Under 20 months Aged Out No longer eligible based on patient's age to complete this topic Varicella Vaccines Aged Out No longer eligible based on patient's age to complete this topic Care Teams Supply Analyst Relationship Specialty Start Date End Date Physician, No Pcp PCP - General 07/13/24
--- OUTSIDE RECORDS SUMMARY | 2024-11-02 14:46 | XMS_ITS | Encounter Summary ---
Author Organization [facility] Address [address] [place] [id number] Phone Care Team Providers Care Golf Teacher Name Role Phone Tylor Holly MD Primary Care Provider [phone] Encounter Details Date Type Department Care Team (Late st Contact Info) Description 03/10/2017 Conversion Encounter [facility] [address] [place] [address] Social History Tobacco Use Types Packs/Day Years Used Date Smoking Tobacco: Never Assessed Sex and Gender Information Value Date Recorded Sex Assigned at Not on file Legal Sex Male 4:11 PM EDT Gender Identity Not on file Sexual Orientation Not on file documented as of this encounter Plan of Treatment Not on file documented as of this encounter Visit Diagnoses Not on filedocumented in this encounter Care Teams Golf Teacher Relationship Specialty Start Date End Date Tylor Holly MD [address] [place] [address] PCP - General 03/04/17 01/18/23 documented as of this encounter
--- OUTSIDE RECORDS SUMMARY | 2024-11-02 14:46 | XMS_ITS | Clinical Summary ---
Author Organization [facility] Address [address] [place] [address] Phone Care Team Providers Care Service Tech/Welder Name Role Phone Unavailable Primary Care Provider Unavailabl e Immunizations Immunization Administration Dates Next Due DTP 07/24/1996,,05/24/1993,09/21,10/22/1989 Hep B, ped/adol 12/10/2004,04/29/2003,05/17/2001 Hib (PRP-T) 09/21/1990 IPV 07/24/1996, 6,05/24/1993,10/22 MMR 09/21/1990,10/22/1989 Meningococcal Polysaccharide 12/11/2003 Pneumococcal Conjugate 12/11/2003 Td (adult) (MBL), 2 Lf tetan us toxoid, PF, adsorbed 05/17/2001 Unknown Vaccine 12/11/2003 Social History Tobacco Use Types Packs/Day Years Used Date Smoking Tobacco: Never Assessed Sex and Gender Information Value Date Recorded Sex Assigned at Not on file Legal Sex Male 4:11 PM EDT Gender Identity Not on file Sexual Orientation Not on file Plan of Treatment Health Maintenance Due Date Last Done Comments Varicella Vaccines (1 of 2 - 13+ 2-dose series) 1998 DTaP,Tdap,and Td Vaccines (7 - Tdap) 05/17/2011 05/17/2001, 07/24/1996, 04/23/1996, Additional history exists Influenza Vaccines (#1) 2024 COVID-19 Vaccine ( season) 2024 HIB Vaccines Completed 09/21/1990 MMR Vaccines Completed 09/21/1990, 10/22/1989 IPV Vaccines Completed 07/24/1996, 03/27, 05/24/1993, Additional history exists Pneumococcal Vaccine Aged Out 12/11/2003 No long er eligible based on patient's age to complete this topic Hepatitis B Vaccines Completed 12/10/2004, 04/29/2003, 05/17/2001 HPV Vaccines Aged Out No longer eligi ble based on patient's age to complete this topic Hepatitis A Vaccines Aged Out No long er eligible based on patient's age to complete this topic Men B Vaccine Aged Out No longer elig ible based on patient's age to complete this topic Meningococcal Vaccine Aged Out No alex stanislav eligible based on patient's age to complete this topic
[2024-11-02] MEDS: Penicillin V Potassium 250 MG TABLET 500 MG PO (15:17)
[2024-11-02] MEDS: dexAMETHasone sod phosphate 10 MG/ML VIAL PO (15:17)
[2024-11-02 15:24] LABS: MANUAL DIFF FLAG NO
[2024-11-02 15:26] LABS: Basophils Absolute Auto 0.1 X10*3/uL (0.0-0.2); Basophils Percent Auto 0.4 % (0-2); Eosinophils Absolute Auto 0.1 X10*3/uL (0.0-0.4); Hematocrit 44.5 % (42.0-52.0); Imm Gran Abs Auto 0.06 X10*3/uL (0.00-0.03); Imm Gran Pct Auto 0.5 % (0.0-0.4); Lymphocytes Absolute Auto 1.6 X10*3/uL (1.2-4.9); Lymphocytes Percent Auto 12.8 % (20-40); Mean Corpuscular HGB Conc 33.7 g/dl (31.0-36.0); Mean Corpuscular Hemoglobin 28.6 pg (27.0-33.0); Mean Corpuscular Volume 84.8 fL (80.0-98.0); Mean Platelet Volume 8.8 fL (9.4-12.4); Monocytes Absolute Auto 0.9 X10*3/uL (0.1-1.2); Monocytes Percent Auto 7.6 % (2-11); Neutrophils Absolute Auto 9.5 x10*3/uL (2.0-8.3); Neutrophils Percent Auto 77.7 % (45-73); Platelet Count 378 X10*3/uL (160-400); Red Blood Count 5.25 X10*6/uL (4.60-5.80); Red Cell Distribution Width 14.1 % (11.0-16.0); White Blood Count 12.2 X10*3/uL (4.8-10.8)
[2024-11-02 15:46] LABS: B Type Natriuretic Peptide 16 pg/mL (<100)
[2024-11-02 15:47] LABS: Troponin-I High Sensitivity < 2.7 ng/L (<3.5-35.0)
[2024-11-02 15:48] LABS: Alanine Aminotransferase 21 U/L (0-40); Albumin Level 4.1 g/dL (3.5-5.0); Anion Gap 12 (12-20); Aspartate Amino Transferase 21 U/L (5-37); Bilirubin Total 0.4 mg/dL (0.0-1.0); Blood Urea Nitrogen 12 mg/dL (9-16); Calcium 9.6 mg/dL (8.4-10.2); Carbon Dioxide 24 mmol/L (22-29); Chloride 107 mmol/L (96-108); Creatinine Clr Calc Pharmacy 174.4; Estimated Glomerular Filt Rate > 60; Glucose Random 105 mg/dL (60-115); Potassium 4.3 mmol/L (3.3-5.1); Sodium 139 mmol/L (135-145); Total Protein 7.6 g/dL (6.5-8.0)
[2024-11-02 15:49] LABS: Alkaline Phosphatase 69 U/L (39-117)
[2024-11-02 17:07] VITALS: BP 125/78; PULSE 62; RESP 18; TEMP 37; O2SAT 97
[2024-11-02 17:09] VITALS: BP 125/78; PULSE 62; RESP 18; TEMP 37; O2SAT 97
== END 2024-11-02 17:10 | disposition home or self-care (01) ==
PROVIDERS: Nurse Practitioner Family; Physician Assistant Medical; Emergency Provider Emergency Medicine Emergency Medical Services; PCP Internal Medicine Geriatric Medicine
DX: J02.0 Streptococcal pharyngitis (principal); R06.02 Shortness of breath; Z03.818 Encounter for observation for suspected exposure to other biological agents ruled out; Z79.899 Other long term (current) drug therapy
CPT/HCPCS: 0241U; 36415; 80053; 83880; 84484; 85025; 87651; 93005; 99283; 99284; J1100

== ENCOUNTER → 2024-11-02 14:34 | Outpatient (BNV) | payer OTHER, SELFPAY | PROVIDERS: Emergency Provider Emergency Medicine Emergency Medical Services; PCP Internal Medicine Geriatric Medicine; Visit Provider Internal Medicine Cardiovascular Disease | DX: R10.9 Unspecified abdominal pain (principal) | CPT/HCPCS: 93010 ==

== ENCOUNTER 2024-12-29 11:09 | Emergency (ER) | payer OTHER, SELFPAY ==
--- NOTE | 2024-12-29 11:15 | ED.ALLEREA ---
HPI - Allergic Reaction General Chief complaint: Allergic Reaction Stated complaint: diff breathing swelling of tongue Time Seen by Provider: 12/29/24 11:25 Source: patient, RN notes reviewed and old records reviewed Mode of arrival: ambulatory Limitations: no limitations History of Present Illness ED Provider: Albert HPI narrative: Patient is a 39-year-old male with no reported pmhx presenting to the emergency department with complaint of left-sided tongue swelling and difficulty swallowing which occurred approximately 30 minutes prior to arrival. He took Benadryl as well as 500 mg of penicillin prior to arrival. States he has not had any new foods or medications but reports that he does take hydroxyzine. Denies shortness of breath. Denies abdominal pain, nausea, vomiting, diarrhea. MD complaint: allergic reaction Onset (ago): minute(s) Exposure: unknown Symptoms: difficulty swallowing and tongue swelling Treatment prior to arrival: benadryl and other Previous Allergic Reaction History: none Related Data Previous Rx's ?Medication ?Instructions ?Recorded meclizine 25 mg tablet 25 mg PO TID PRN dizziness #14 tabs 07/21/23 hydroxyzine HCl 25 mg tablet 25 mg PO Q8H PRN anxiety #30 tabs 07/24/24 trazodone 50 mg tablet 25 mg (1/2 x 50 mg) PO BEDTIME PRN 07/24/24 sleep #30 tabs penicillin V potassium 500 mg 500 mg PO BID 10 days #20 tabs 11/02/24 tablet cetirizine 10 mg tablet 10 mg PO DAILY #7 tabs 12/29/24 epinephrine 0.3 mg/0.3 mL 0.3 mg (0.3 mL) IM Q10M PRN 12/29/24 injection, auto-injector anaphylaxis #2 ea famotidine 20 mg tablet 20 mg PO DAILY #7 tabs 12/29/24 Allergies Allergy/AdvReac Type Severity Reaction Status Date / Time No Known Allergies Allergy Verified 12/29/24 11:18 [No Known Allergies*] Review of Systems Review of Systems: As per HPI Yes all other systems are reviewed and are negative Constitutional: Constitutional: Reports as per HPI [facility] Past Medical History Medical History No pertinent past medical history Social History Social History Alcohol intake: unknown Patient Tobacco Use Status: Tobacco use Unknown Smoked in Last 30 Days: Yes Use of substances other than those prescribed or required for medical reasons: No Advance Directives: No Advance Directives Information Provided: No Physical Exam ED Vital Signs: Vital Signs - 24 hr 12/29/24 11:16 12/29/24 11:46 12/29/24 11:57 Temperature 97.6 F Pulse Rate 67 57 61 Respiratory Rate 18 15 Blood Pressure 109/61 115/73 115/73 Pulse Oximetry 97 97 Oxygen Delivery Method Room Air Room Air 12/29/24 15:00 12/29/24 16:09 Temperature 96.4 F L 96.4 F L Pulse Rate 74 74 Respiratory Rate 16 16 Blood Pressure 106/64 106/64 Pulse Oximetry 98 98 Oxygen Delivery Method Room Air Room Air BMI result Body Mass Index 41.2 Vital signs have been reviewed and appear to be correct. Blood pressure normal. Heart rate normal. Respiratory rate normal. Temperature normal. Oxygen saturation normal. Const General: cooperative, healthy appearing and no acute distress Orientation/consciousness: oriented to person, oriented to place, oriented to time and patient oriented x3 Limitations: no limitations HENMT Head: Yes normocephalic and Yes atraumatic Ears: external ears normal General nose exam: Normal external nose present Face and sinus: Yes face symmetric Mouth: lip normal, oropharynx normal, moist mucous membranes, no drooling, tongue abnormal edematous (left sided) and laceration (small laceration to left lateral tongue) and no trismus Throat: Yes uvula midline and Yes uvular edema Eyes Pupils: Equal, round and reactive pupils present Neck Neck: Yes normal visual inspection and Yes supple Resp Effort & Inspection: normal respiratory effort and able to speak in complete sentences Auscultation: clear to auscultation bilaterally Cardio Rate: regular rate Rhythm: regular rhythm Heart sounds: S1 normal heart sound present and S2 normal heart sound present GI Palpation (GI): Soft to palpation and nontender Auscultation: normoactive bowel sounds General: Yes no CVA tenderness Back/Spine/Pelvis Back: no CVA tenderness Skin General skin exam: elasticity normal and turgor normal Neuro General: oriented to person, oriented to place, oriented to time, patient oriented x3, moves all extremities, no focal motor deficits and CN's II-XI intact bilaterally Cranial nerves: Yes Equal, round and reactive pupils present Cognition (Neuro): normal cognition Extrem General: Yes full ROM, Yes no pedal edema and Yes no calf tenderness Psych Mental Status: mental status grossly normal Affect: normal affect Thought process: Normal thought process present Course Course Course Narrative: This is a Rapid Medical Exam performed in triage by Leni Auguste PA-C. Full HPI, ROS and PE to be performed by primary ED provider. 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 No known allergens. denies new exposures. PE: talking in complete sentences, +L sided tongue swelling & uvular swelling noted, uvula midline Plan: IV Meds, charge nurse aware Reevaluation(s) Reevaluation #1: Patient reports swallowing has improved, tongue feels less swollen. Time: 12:49 Reevaluation #2: Patient has been observed in the emergency department for over 4 hours with improvement in tongue and uvula swelling and without worsening in his condition. Feel patient is stable for discharge at this time. Will send prescription for EpiPen, cetirizine and famotidine. Discussed indications for use with patient and advised that if he does use his EpiPen he should call 911 or proceed to the nearest emergency department immediately. Patient also requesting list of dental clinics for ongoing dental problem which is not currently bothering him at this time. Return precautions discussed. Advised patient to follow up with PCP so that he can be referred to an senior operations analyst for testing. Patient verbalized understanding of and agreement with plan. Time: 16:07 Medications Administered Discontinued Medications Generic Name Dose Route Start Last Admin Trade Name Gabriella PRN Reason Stop Dose Admin Diphenhydramine HCl 50 mg 12/29/24 11:16 12/29/24 11:45 Diphenhydramine Hcl 50 Mg/Ml Vial IVPUSH 12/29/24 11:17 50 mg ONCE ONE Administration Epinephrine 0.3 mg 12/29/24 11:30 12/29/24 11:46 Epinephrine 1 Mg/Ml Vial IM 12/29/24 11:31 0.3 mg STAT STA Administration Famotidine 20 mg 12/29/24 11:16 12/29/24 11:45 Famotidine/Pf 20 Mg/2 Ml Vial IVPUSH 12/29/24 11:17 20 mg ONCE ONE Administration Methylprednisolone Sodium Succinate 125 mg 12/29/24 11:16 12/29/24 12:27 Methylprednisolone Sod Succ 125 Mg/2 Ml Vial IVPUSH 12/29/24 11:17 Not Given ONCE ONE Methylprednisolone Sodium Succinate 125 mg 12/29/24 11:45 12/29/24 12:05 Methylprednisolone Sod Succ 125 Mg Vial IVPUSH 12/29/24 11:46 125 mg ONCE ONE Administration Medical Decision Making Medical Decision Making [facility] Narrative: Patient is a 39-year-old male with no reported pmhx, no history of anaphylaxis presenting to the emergency department with complaint of left-sided tongue swelling and difficulty swallowing which occurred approximately 30 minutes prior to arrival. On exam patient is awake, A+Ox3, VS WNL, afebrile, normal neurological exam without focal deficits, physical exam findings as above. Given reported symptoms and physical exam findings, initial differential includes but is not limited to allergic reaction, angioedema, anaphylaxis. 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 See course for remainder of clinical decision making. Differential Diagnosis Differential Diagnoses: The differential diagnosis associated with the presentation includes [facility] Admission/Observation Consideration of admission/observation: Escalation of care including admission/observation considered Patient would have been admitted to the hospital had their work up had any findings where hospital admission was appropriate and their clinical presentation warranted hospital admission. External Record Review External record reviewed: Inpatient record, Office record and Outpatient record Prescription Management I considered prescription management with: Other Critical Care Time Critical Care Time Critical Care Time: Yes Total Critical Care Time: 43 Attestation: I have personally provided critical care time exclusive of time spent on separately billable procedures. Time includes review of lab data, radiology results, discussion with consultants, and monitoring for potential decompensation. Intervention performed as documented. Discharge Plan Discharge Clinical Impression: Angioedema Patient Disposition: Home, Self-Care Instructions: Anaphylaxis (ED), Angioedema (ED) Additional Instructions: You were evaluated in the emergency department today for an allergic reaction. You have been given medications to control your symptoms. You have been observed for several hours in the emergency department and you are stable for discharge at this time. You have been prescribed an Epi-Pen (epinephrine) in case your symptoms should return. If you use your Epi-Pen, you should call 911 or go to an emergency department right away. You have been prescribed cetirizine and famotidine which are two different types of antihistamines. Take these medications as prescribed. Please schedule an appointment with your primary care physician for follow-up. Return to the emergency department if you experience rashes, difficulty breathing or swallowing, lip/mouth/tongue swelling, vomiting, or for any other concerning symptoms. Call or visit any of the clinics below to establish care with a dentist: [facility] [address] [place] [address] [facility] [address] [facility], [address] [facility] [address] [place] [address] [facility] [address] [address] [facility] [address] [place] [address] [place] [address] [place] [address] Prescriptions: New epinephrine 0.3 mg/0.3 mL auto-injector 0.3 mg IM Q10M PRN (Reason: anaphylaxis) Qty: 2 0RF Rx Instructions: for 2 doses cetirizine 10 mg tablet 10 mg PO DAILY Qty: 7 0RF famotidine 20 mg tablet 20 mg PO DAILY Qty: 7 0RF No Action meclizine 25 mg tablet 25 mg PO TID PRN (Reason: dizziness) Qty: 14 0RF trazodone 50 mg tablet 25 mg PO BEDTIME PRN (Reason: sleep) Qty: 30 0RF hydroxyzine HCl 25 mg tablet 25 mg PO Q8H PRN (Reason: anxiety) Qty: 30 0RF penicillin V potassium 500 mg tablet 500 mg PO BID 10 Days Qty: 20 0RF Interventions: ED Discharge Assessment Last Done: 12/29/24 16:09 Discharge Date/Time: 12/29/24 16:45 Print Language: Choose Not To Answer
[2024-12-29 11:16] VITALS: BP 109/61; PULSE 67; RESP 18; TEMP 36.4; O2SAT 97; BMI 41.2
[2024-12-29] MEDS: Famotidine/PF 20 MG/2 ML VIAL IVPUSH (11:45)
[2024-12-29] MEDS: diphenhydrAMINE HCL 50 MG/ML VIAL IVPUSH (11:45)
[2024-12-29 11:46] VITALS: BP 115/73; PULSE 57
[2024-12-29] MEDS: EPINEPHrine 1 MG/ML VIAL 0.3 MG IM (11:46)
[2024-12-29 11:57] VITALS: BP 115/73; PULSE 61; RESP 15; O2SAT 97
[2024-12-29 15:00] VITALS: BP 106/64; PULSE 74; RESP 16; TEMP 35.8; O2SAT 98
[2024-12-29 16:09] VITALS: BP 106/64; PULSE 74; RESP 16; TEMP 35.8; O2SAT 98
== END 2024-12-29 16:45 | disposition home or self-care (01) ==
PROVIDERS: Emergency Provider Emergency Medicine; PCP Internal Medicine Geriatric Medicine
DX: R13.10 Dysphagia, unspecified (principal); T78.3XXA Angioneurotic edema, initial encounter; X58.XXXA Exposure to other specified factors, initial encounter; Y92.9 Unspecified place or not applicable; Y93.9 Activity, unspecified; Y99.9 Unspecified external cause status
CPT/HCPCS: 96372; 96374; 96375; 99284; J0171; J1200; J1308; J2919

== ENCOUNTER 2024-12-30 15:10 | Emergency (ER) | payer OTHER, SELFPAY ==
--- NOTE | ~2024-12-30 | US_ITS ---
CLINICAL HISTORY: L flank pain LLQ abd pain urinary hesitancy US Renal Comparison: None Findings: Right kidney normal size and echotexture, 10.4 cm length. Left kidney normal size and echotexture, 11.8 cm length. 6 mm upper pole calculus, 6 mm midpole calculus. No hydronephrosis of either kidney. Normal color Doppler IMPRESSION: Nonobstructing left renal calculi. This document has been electronically signed by: Braydon Piedra MD on 12/30/2024 16:18:50
--- NOTE | ~2024-12-30 | XR_ITS ---
CLINICAL HISTORY: flank pain, ? stone in bladder 1 view abdomen Comparison: None Findings: No pneumoperitoneum or pneumatosis. There are 2 calcifications within the left hemipelvis projecting over the bladder base. No acute fractures. IMPRESSION: There are 2 calcifications within the left hemipelvis, projecting over the bladder. It is possible that 1 of these could be within the distal left ureter. This document has been electronically signed by: Braydon Piedra MD on 12/30/2024 18:14:04
[2024-12-30 15:21] VITALS: BP 133/80; PULSE 87; RESP 18; TEMP 36.9; O2SAT 98; BMI 41.0
--- NOTE | 2024-12-30 15:21 | ED.ABDPAIN ---
HPI - Abdominal Pain General Chief Complaint: Abdominal Pain Stated Complaint: ?kidney stones Time Seen by Provider: 12/30/24 16:28 Source: patient, RN notes reviewed and old records reviewed Mode of arrival: ambulatory Limitations: no limitations History of Present Illness ED Provider: Albert HPI narrative: Patient is a 39-year-old male with history of renal calculi, angioedema presenting to the ED with complaint of severe left groin pain radiating to his back which began around 30 mins prior to arrival. States pain is worse than last time he had a kidney stone. Associated nausea and vomiting. Denies fevers. Diaphoretic and appears very uncomfortable, unable to sit still on stretcher. Denies chest pain or dyspnea. Has been unable to urinate for the past hour. Related Data Previous Rx's ?Medication ?Instructions ?Recorded meclizine 25 mg tablet 25 mg PO TID PRN dizziness #14 tabs 07/21/23 hydroxyzine HCl 25 mg tablet 25 mg PO Q8H PRN anxiety #30 tabs 07/24/24 trazodone 50 mg tablet 25 mg (1/2 x 50 mg) PO BEDTIME PRN 07/24/24 sleep #30 tabs penicillin V potassium 500 mg 500 mg PO BID 10 days #20 tabs 11/02/24 tablet cetirizine 10 mg tablet 10 mg PO DAILY #7 tabs 12/29/24 epinephrine 0.3 mg/0.3 mL 0.3 mg (0.3 mL) IM Q10M PRN 12/29/24 injection, auto-injector anaphylaxis #2 ea famotidine 20 mg tablet 20 mg PO DAILY #7 tabs 12/29/24 cephalexin 500 mg capsule 500 mg PO Q12H #14 caps 12/31/24 ondansetron HCl 4 mg tablet 4 mg PO Q8H PRN nausea and 12/31/24 vomiting #10 tabs oxycodone 5 mg tablet 5 mg PO Q8H PRN pain #10 tabs 12/31/24 tamsulosin 0.4 mg capsule (Flomax) 0.4 mg PO DAILY #7 caps 12/31/24 Allergies Allergy/AdvReac Type Severity Reaction Status Date / Time No Known Allergies Allergy Verified 12/30/24 15:24 [No Known Allergies*] Review of Systems Review of Systems As per HPI Yes all other systems are reviewed and are negative Constitutional: Reports as per [facility] Past Medical History Medical History No pertinent past medical history Social History Social History Alcohol intake: unknown Patient Tobacco Use Status: Tobacco use Unknown Smoked in Last 30 Days: Yes Use of substances other than those prescribed or required for medical reasons: No Advance Directives: No Advance Directives Information Provided: No Do you have a plan to hurt others: No Plan Physical Exam ED Vital Signs: Vital Signs - 24 hr 12/30/24 15:21 12/30/24 17:27 12/30/24 19:29 Temperature 98.4 F 98.9 F 98.4 F Pulse Rate 87 70 Respiratory Rate 18 16 Blood Pressure 133/80 136/73 Pulse Oximetry 98 96 Oxygen Delivery Method Room Air Room Air 12/30/24 21:30 Temperature 96.8 F Pulse Rate 65 Respiratory Rate 16 Blood Pressure 144/85 H Pulse Oximetry 96 Oxygen Delivery Method Room Air BMI result Body Mass Index 41.0 Vital signs have been reviewed and appear to be correct. Blood pressure normal. Heart rate normal. Respiratory rate normal. Temperature normal. Oxygen saturation normal. Const General: cooperative, healthy appearing, alert, awake and diaphoretic; No comfortable Orientation/consciousness: oriented to person, oriented to place, oriented to time and patient oriented x3 Limitations: no limitations HENMA Head: Yes normocephalic and Yes atraumatic Ears: external ears normal General nose exam: Normal external nose present Face and sinus: Yes face symmetric Mouth: oropharynx normal and moist mucous membranes Throat: Yes uvula midline Eyes Pupils: Equal, round and reactive pupils present Neck Neck: Yes normal visual inspection and Yes supple Resp Effort & Inspection: normal respiratory effort and able to speak in complete sentences Auscultation: clear to auscultation bilaterally Cardio Rate: regular rate Rhythm: regular rhythm Heart sounds: S1 normal heart sound present and S2 normal heart sound present GI Palpation (GI): Soft to palpation and nontender Auscultation: normoactive bowel sounds General: Yes no CVA tenderness Back/Spine/Pelvis Back: no CVA tenderness Skin General skin exam: elasticity normal and turgor normal Neuro General: oriented to person, oriented to place, oriented to time, patient oriented x3, moves all extremities, no focal motor deficits and CN's II-XI intact bilaterally Cranial nerves: Yes Equal, round and reactive pupils present Cognition (Neuro): normal cognition Extrem General: Yes full ROM, Yes no pedal edema and Yes no calf tenderness Psych Mental Status: mental status grossly normal Affect: normal affect Thought process: Normal thought process present Course Course Course Narrative: This is a Rapid Medical Exam performed in triage by Leni Auguste PA-C. Full HPI, ROS and PE to be performed by primary ED provider. 39 M w/PMHx renal stones, angioedema (seen in our ED yesterday) presenting to the ED c/o penile pain radiating to L side with assoc dysuria & inability to pee. Last urinated 1hr ago. +urinary hesitancy PE: uncomfortable, +L CVAT, abdomen soft & nontender, + clammy Plan: Labs, UA, US Reevaluation(s) Reevaluation #1: I Jessie Salas PA-C have accepted care of the patient at signed out pending labs imaging and final disposition KUB returning, 2 small calculi noted to be in the vicinity of the ureteral vesicular junction. Urine coming back it is infected, we will be adding blood cultures, lactic, additional IV fluid, Flomax and ceftriaxone. Time: 19:26 Reevaluation #2: 1944 lactic was 2.8 2208 the lactic is 2.1 0026 lactic 1.4 Patient eager for discharge, we will send with the antibiotics, some additional pain medication, nausea medication and Flomax, he has been comfortable for several hours, he likely passed the stones. We will send with Urology contact. Time: 02:09 Medical Decision Making Medical Decision Making [facility] Narrative: Patient is a 39-year-old male with history of renal calculi, angioedema presenting to the ED with complaint of severe left groin pain radiating to his back which began around 30 mins prior to arrival. On exam patient is awake, A+Ox3, VS WNL, afebrile, normal neurological exam without focal deficits, physical exam findings as above. Given reported symptoms and physical exam findings, initial differential includes but is not limited to renal colic, obstructing calculi, hydronephrosis, UTI/pyelonephritis, urinary retention. Labs notable for leukocytosis, . UA notable for 3+ blood, 76-150 RBCs, no evidence of infection, + crystals. Renal ultrasound notable for nonobstructing left renal calculi, no hydronephrosis. My interpretation is in agreement with the radiologist's interpretation. Patient medicated with morphine and zofran without relief, dilaudid ordered. Pain reduced to 6/10 per patient after Dilaudid. Patient signed out to BRAND[facility] pending bladder scan, UA, KUB, improvement in pain. Differential Diagnosis Differential Diagnoses: The differential diagnosis associated with the presentation includes As per [facility] Admission/Observation Consideration of admission/observation: Escalation of care including admission/observation considered Patient would have been admitted to the hospital had their work up had any findings where hospital admission was appropriate and their clinical presentation warranted hospital admission. Lab Data [facility] Lab Attestation statement: I reviewed the patient's lab results. 12/30/24 16:22 12/30/24 16:22 Labs: Lab Results 12/30/24 12/30/24 12/30/24 Range/Units 16:22 19:10 19:45 WBC 24.2 H (4.8-10.8) X10*3/uL RBC 5.18 (4.60-5.80) X10*6/uL Hgb 14.5 (14.0-18.0) g/dl Hct 43.6 (42.0-52.0) % MCV 84.2 (80.0-98.0) fL MCH 28.0 (27.0-33.0) pg MCHC 33.3 (31.0-36.0) g/dl RDW 14.5 (11.0-16.0) % Plt Count 523 H D (160-400) X10*3/uL MPV 9.3 L (9.4-12.4) fL Immature Gran % (Auto) 0.6 H (0.0-0.4) % Neut % (Auto) 67.9 (45-73) % Lymph % (Auto) 20.9 (20-40) % [place] % (Auto) 9.6 (2-11) % Eos % (Auto) 0.5 (0-4) % Baso % (Auto) 0.5 (0-2) % Lymph # (Auto) 5.1 H (1.2-4.9) X10*3/uL [place] # (Auto) 2.3 H (0.1-1.2) X10*3/uL Eos # (Auto) 0.1 (0.0-0.4) X10*3/uL Baso # (Auto) 0.1 (0.0-0.2) X10*3/uL Abs Immat Gran (auto) 0.15 H (0.00-0.03) X10*3/uL Absolute Neuts (auto) 16.4 H (2.0-8.3) x10*3/uL Absolute Nucleated RBC 0.000 (0.0-0.012) X10*3/uL Nucleated RBC % (auto) 0.0 (0.0-0.2) /100WBC Smear Tech's Comments VERIFIED Sodium 140 (135-145) mmol/L Potassium 3.3 D (3.3-5.1) mmol/L Chloride 106 (96-108) mmol/L Carbon Dioxide 23 (22-29) mmol/L Anion Gap 14 (12-20) BUN 19 H (9-16) mg/dL Creatinine 1.01 (0.5-1.4) mg/dL Estim Creat Clear Calc 125.0 Estimated GFR > 60 Random Glucose 116 H (60-115) mg/dL Lactic Acid 2.8 H* (0.5-2.0) mmol/L Lactic Acid F/U @ 2Hr (0.5-2.0) mmol/L Lactic Acid F/U @ 4Hr (0.5-2.0) mmol/L Calcium 9.8 (8.4-10.2) mg/dL Magnesium 2.3 (1.6-2.6) mg/dL Total Bilirubin 0.3 (0.0-1.0) mg/dL Direct Bilirubin 0.1 (0.0-0.5) mg/dL AST 39 H (5-37) U/L ALT 60 H (0-40) U/L Alkaline Phosphatase 64 (39-117) U/L Total Protein 8.0 (6.5-8.0) g/dL Albumin 4.5 (3.5-5.0) g/dL Lipase 14 (8-78) U/L Urine Color [place] Urine Appearance Clear Urine pH 6.0 (5.0-9.0) Ur Specific [place] >= 1.030 H (1.005-1.025) Urine Protein 30 (1+) H (Neg-Trace) mg/dL Urine Glucose (UA) Negative (Negative) mg/dL Urine Ketones Trace (Negative) mg/dL Urine Blood Moderate (2+) H (Negative) Urine Nitrite Positive H (Negative) Ur Leukocyte Esterase Negative (Negative) Urine RBC >20 H (0-2) /HPF Urine WBC 0-5 (0-5) /HPF Ur Squamous Epith Cells 0-2 (0-2) /HPF Urine Bacteria None Seen (None Seen) Hyaline Casts 0-2 (0-2) /LPF 12/30/24 12/31/24 Range/Units 22:08 00:26 WBC (4.8-10.8) X10*3/uL RBC (4.60-5.80) X10*6/uL Hgb (14.0-18.0) g/dl Hct (42.0-52.0) % MCV (80.0-98.0) fL MCH (27.0-33.0) pg MCHC (31.0-36.0) g/dl RDW (11.0-16.0) % Plt Count (160-400) X10*3/uL MPV (9.4-12.4) fL Immature Gran % (Auto) (0.0-0.4) % Neut % (Auto) (45-73) % Lymph % (Auto) (20-40) % [place] % (Auto) (2-11) % Eos % (Auto) (0-4) % Baso % (Auto) (0-2) % Lymph # (Auto) (1.2-4.9) X10*3/uL [place] # (Auto) (0.1-1.2) X10*3/uL Eos # (Auto) (0.0-0.4) X10*3/uL Baso # (Auto) (0.0-0.2) X10*3/uL Abs Immat Gran (auto) (0.00-0.03) X10*3/uL Absolute Neuts (auto) (2.0-8.3) x10*3/uL Absolute Nucleated RBC (0.0-0.012) X10*3/uL Nucleated RBC % (auto) (0.0-0.2) /100WBC Smear Tech's Comments Sodium (135-145) mmol/L Potassium (3.3-5.1) mmol/L Chloride (96-108) mmol/L Carbon Dioxide (22-29) mmol/L Anion Gap (12-20) BUN (9-16) mg/dL Creatinine (0.5-1.4) mg/dL Estim Creat Clear Calc Estimated GFR Random Glucose (60-115) mg/dL Lactic Acid (0.5-2.0) mmol/L Lactic Acid F/U @ 2Hr 2.1 H* (0.5-2.0) mmol/L Lactic Acid F/U @ 4Hr 1.4 (0.5-2.0) mmol/L Calcium (8.4-10.2) mg/dL Magnesium (1.6-2.6) mg/dL Total Bilirubin (0.0-1.0) mg/dL Direct Bilirubin (0.0-0.5) mg/dL AST (5-37) U/L ALT (0-40) U/L Alkaline Phosphatase (39-117) U/L Total Protein (6.5-8.0) g/dL Albumin (3.5-5.0) g/dL Lipase (8-78) U/L Urine Color Urine Appearance Urine pH (5.0-9.0) Ur Specific [place] (1.005-1.025) Urine Protein (Neg-Trace) mg/dL Urine Glucose (UA) (Negative) mg/dL Urine Ketones (Negative) mg/dL Urine Blood (Negative) Urine Nitrite (Negative) Ur Leukocyte Esterase (Negative) Urine RBC (0-2) /HPF Urine WBC (0-5) /HPF Ur Squamous Epith Cells (0-2) /HPF Urine Bacteria (None Seen) Hyaline Casts (0-2) /LPF Independent Interpretation I performed an independent interpretation of an: Ultrasound Interpretation: renal ultrasound notable for nonobstructing left renal calculi, no hydronephrosis Radiology Impression Discussion of test interpretation with radiology: I have reviewed the radiologist's reading. Radiologist Impression: US Renal Comparison: None Findings: Right kidney normal size and echotexture, 10.4 cm length. Left kidney normal size and echotexture, 11.8 cm length. 6 mm upper pole calculus, 6 mm midpole calculus. No hydronephrosis of either kidney. Normal color Doppler IMPRESSION: Nonobstructing left renal calculi. External Record Review External record reviewed: Inpatient record, Office record and Outpatient record Medications Administered Discontinued Medications Generic Name Dose Route Start Last Admin Trade Name Maximinoq PRN Reason Stop Dose Admin Ceftriaxone Sodium 2 gm 12/30/24 19:26 12/30/24 19:45 Ceftriaxone Sodium 2 Gm Vial IVPUSH 12/30/24 19:27 2 gm ONCE ONE Administration Hydromorphone HCl 2 mg 12/30/24 16:57 12/30/24 17:03 Hydromorphone Hcl 2 Mg/Ml Vial IVPUSH 12/30/24 16:58 2 mg ONCE ONE Administration Protocol Hydromorphone HCl 1 mg 12/30/24 19:25 12/30/24 19:40 Hydromorphone Hcl 1 Mg/Ml Syringe IVPUSH 12/30/24 19:26 1 mg ONCE ONE Administration Protocol Sodium Chloride 1,000 mls @ 999 mls/hr 12/30/24 16:30 12/30/24 17:41 Ns IV 12/30/24 17:30 Infused .Q1H1M DANIELA Infusion Sodium Chloride 1,000 mls @ 999 mls/hr 12/30/24 19:30 12/30/24 21:36 Ns IV 12/30/24 20:30 Infused .Q1H1M DANIELA Infusion Sodium Chloride 1,000 mls @ 999 mls/hr 12/30/24 21:15 12/31/24 00:49 Ns IV 12/30/24 22:15 Infused .Q1H1M DANIELA Infusion Methylprednisolone Sodium Succinate 60 mg 12/30/24 17:15 12/30/24 17:31 Methylprednisolone Sod Succ 125 Mg Vial IVPUSH 12/30/24 17:16 60 mg ONCE ONE Administration Morphine Sulfate 4 mg 12/30/24 16:28 12/30/24 16:39 Morphine Sulfate 4 Mg/Ml Cartridge IVPUSH 12/30/24 16:29 4 mg ONCE ONE Administration Protocol Ondansetron HCl 4 mg 12/30/24 16:28 12/30/24 16:39 Ondansetron Hcl 4 Mg/2 Ml Vial IVPUSH 12/30/24 16:29 4 mg ONCE ONE Administration Ondansetron HCl 4 mg 12/30/24 19:25 12/30/24 19:40 Ondansetron Hcl 4 Mg/2 Ml Vial IVPUSH 12/30/24 19:26 4 mg ONCE ONE Administration Tamsulosin HCl 0.4 mg 12/30/24 19:26 12/30/24 19:35 Tamsulosin Hcl 0.4 Mg Capsule PO 12/30/24 19:27 0.4 mg ONCE ONE Administration Discharge Plan Discharge Clinical Impression: Calculus of distal left ureter, Urinary tract infection Patient Disposition: Home, Self-Care Instructions: Urinary Tract Infection in Men (ED), Renal Colic (ED) Additional Instructions: You were found to be passing 2 small kidney stones, you likely have completely pass them. You also have a urinary tract infection. See home care instructions. Take the Flomax as directed, this will help to induce urine flow. Take the cephalexin as directed for your urinary tract infection. If you develop additional pain, you can use the ketorolac in the oxycodone as needed, uses Zofran as needed for nausea. I do believe you likely passed the stones already. I am also providing you with a contact for our Urology Service if you require their care in the future. Prescriptions: New cephalexin 500 mg capsule 500 mg PO Q12H Qty: 14 0RF ondansetron HCl 4 mg tablet 4 mg PO Q8H PRN (Reason: nausea and vomiting) Qty: 10 0RF tamsulosin [Flomax] 0.4 mg capsule 0.4 mg PO DAILY Qty: 7 0RF oxycodone 5 mg tablet 5 mg PO Q8H PRN (Reason: pain) Qty: 10 0RF Rx Instructions: Partial Fill upon patient request. No Action meclizine 25 mg tablet 25 mg PO TID PRN (Reason: dizziness) Qty: 14 0RF trazodone 50 mg tablet 25 mg PO BEDTIME PRN (Reason: sleep) Qty: 30 0RF hydroxyzine HCl 25 mg tablet 25 mg PO Q8H PRN (Reason: anxiety) Qty: 30 0RF penicillin V potassium 500 mg tablet 500 mg PO BID 10 Days Qty: 20 0RF epinephrine 0.3 mg/0.3 mL auto-injector 0.3 mg IM Q10M PRN (Reason: anaphylaxis) Qty: 2 0RF Rx Instructions: for 2 doses cetirizine 10 mg tablet 10 mg PO DAILY Qty: 7 0RF famotidine 20 mg tablet 20 mg PO DAILY Qty: 7 0RF Referrals: Vikas Mccauley MD [Physician] - (renal colic) Print Language: Choose Not To Answer
[2024-12-30 16:37] LABS: Basophils Absolute Auto 0.1 X10*3/uL (0.0-0.2); Basophils Percent Auto 0.5 % (0-2); Eosinophils Absolute Auto 0.1 X10*3/uL (0.0-0.4); Eosinophils Percent Auto 0.5 % (0-4); Hematocrit 43.6 % (42.0-52.0); Hemoglobin 14.5 g/dl (14.0-18.0); Imm Gran Abs Auto 0.15 X10*3/uL (0.00-0.03); Imm Gran Pct Auto 0.6 % (0.0-0.4); Lymphocytes Absolute Auto 5.1 X10*3/uL (1.2-4.9); Lymphocytes Percent Auto 20.9 % (20-40); MANUAL DIFF FLAG SCAN; Mean Corpuscular HGB Conc 33.3 g/dl (31.0-36.0); Mean Corpuscular Volume 84.2 fL (80.0-98.0); Mean Platelet Volume 9.3 fL (9.4-12.4); Monocytes Absolute Auto 2.3 X10*3/uL (0.1-1.2); Monocytes Percent Auto 9.6 % (2-11); Neutrophils Absolute Auto 16.4 x10*3/uL (2.0-8.3); Neutrophils Percent Auto 67.9 % (45-73); Platelet Count 523 X10*3/uL (160-400); Red Blood Count 5.18 X10*6/uL (4.60-5.80); Red Cell Distribution Width 14.5 % (11.0-16.0); SCAN SMEAR FLAG 1; White Blood Count 24.2 X10*3/uL (4.8-10.8)
[2024-12-30] MEDS: Morphine Sulfate 4 MG/ML CARTRIDGE IVPUSH (16:39)
[2024-12-30] MEDS: 0.9 % Sodium Chloride 1,000 ML 999 ML IV ×3 (16:39→21:35)
[2024-12-30] MEDS: ondansetron HCL 4 MG/2 ML VIAL IVPUSH ×2 (16:39→19:40)
[2024-12-30] MEDS: HYDROmorphone HCl 2 MG/ML VIAL IVPUSH (17:03)
[2024-12-30 17:27] VITALS: TEMP 37.2
--- NOTE | 2024-12-30 17:27 | PC.NURSE ---
This nurse wanted to get Rectal temp on patient due to pt being diaphoretic, pt refused rectal temp, this nurse explained why rectal temp is the most accurate and beneficial, pt still refused oral temp obtained.
[2024-12-30 17:33] LABS: SLIDE REVIEW VERIFIED
[2024-12-30 17:47] LABS: Alanine Aminotransferase 60 U/L (0-40); Albumin Level 4.5 g/dL (3.5-5.0); Alkaline Phosphatase 64 U/L (39-117); Anion Gap 14 (12-20); Aspartate Amino Transferase 39 U/L (5-37); Bilirubin Direct 0.1 mg/dL (0.0-0.5); Bilirubin Total 0.3 mg/dL (0.0-1.0); Blood Urea Nitrogen 19 mg/dL (9-16); Calcium 9.8 mg/dL (8.4-10.2); Carbon Dioxide 23 mmol/L (22-29); Chloride 106 mmol/L (96-108); Estimated Glomerular Filt Rate > 60; Glucose Random 116 mg/dL (60-115); Magnesium 2.3 mg/dL (1.6-2.6); Potassium 3.3 mmol/L (3.3-5.1); Sodium 140 mmol/L (135-145)
[2024-12-30 17:58] LABS: Lipase 14 U/L (8-78)
--- NOTE | 2024-12-30 18:42 | PC.NURSE ---
PT complains of 10 out of 10 pain, PT still unable to urinate provider notified.
[2024-12-30 19:22] LABS: Appearance Urine Clear; Color Urine Orange; Glucose Urine UA Negative (Negative); Leukocyte Esterase Urine Negative (Negative); Nitrite Urine Positive (Negative); Specific Gravity - Urine >= 1.030 (1.005-1.025); UMIC TRIGGER UACC YES; Urine Blood Moderate (2+) (Negative); Urine Ketones Trace mg/dL (Negative); Urine Protein 30 (1+) mg/dL (Neg-Trace)
[2024-12-30 19:29] VITALS: BP 136/73; PULSE 70; RESP 16; TEMP 36.9; O2SAT 96
--- NOTE | 2024-12-30 19:30 | PC.NURSE ---
At 1930 this nurse went to straight cath this patient, Order was put in by Provider Josue PAZ, but after multiple attempts the order keeps refluxing as cancelled, this nurse proceeded with verbal order for Urinary straight catheterizaiton from Provider Josue PAZ, PT tolerated straight catheterization fairly. 400ml output for immediately after Urinary catheterization. Urine appeared to be orange colored pt states he was taking medication AZO for the last couple of days to help with Urinary symptoms relief.Clinical Coordinator BONG Ayala notified.
[2024-12-30] MEDS: Tamsulosin HCL 0.4 MG CAPSULE PO (19:35)
[2024-12-30] MEDS: HYDROmorphone HCl 1 MG/ML SYRINGE IVPUSH (19:40)
[2024-12-30] MEDS: cefTRIAXone sodium 2 GM VIAL IVPUSH (19:45)
[2024-12-30 20:04] LABS: Bacteria Urine None Seen (None Seen); Hyaline Casts Urine 0-2 /LPF (0-2); RBC Urine >20 /HPF (0-2); Squamous Epithelial Cell Urine 0-2 /HPF (0-2); UACC Culture Trigger YES; WBC Urine 0-5 /HPF (0-5)
[2024-12-30 20:27] LABS: Lactic Acid 2.8 mmol/L (0.5-2.0)
[2024-12-30 21:30] VITALS: BP 144/85; PULSE 65; RESP 16; TEMP 36; O2SAT 96
[2024-12-30 21:49] LABS: Reflex Lactate? Lactic Acid Added
[2024-12-30 22:32] LABS: ~Lactic Acid-LAB USE ONLY 2.1 mmol/L (0.5-2.0)
--- NOTE | 2024-12-30 22:32 | PC.NURSE ---
Rounded on PT fluids currently still running at this time. Call crawford placed within reach states pain scale is a 2 out of 10.
--- NOTE | 2024-12-30 23:20 | PC.NURSE ---
At this time pt states 1 out of 10 pain resting quietly call crawford within reach and IVF still running.
[2024-12-31 00:11] LABS: Reflex Lactate? 2 Y
[2024-12-31 00:47] LABS: ~Lactic Acid-LAB USE ONLY 1.4 mmol/L (0.5-2.0)
[2024-12-31] MEDS: Magnesium Hydrox/Alum Hydrox 30 ML ORAL.SUSP PO (02:20)
[2024-12-31 02:24] VITALS: BP 129/71; PULSE 63; RESP 18; TEMP 36.9; O2SAT 96
[2024-12-31 03:54] LABS: CT PCR NOT DETECTED (Not Detect.); NG PCR NOT DETECTED (Not Detect.)
== END 2024-12-31 02:25 | disposition home or self-care (01) ==
PROVIDERS: Physician Assistant; Physician Assistant Medical; Registered Nurse Emergency; Emergency Provider Emergency Medicine; PCP Internal Medicine Geriatric Medicine
DX: N20.1 Calculus of ureter (principal); N39.0 Urinary tract infection, site not specified; R10.32 Left lower quadrant pain; Z79.899 Other long term (current) drug therapy
CPT/HCPCS: 36415; 74018; 76775; 80048; 80076; 81001; 83605; 83690; 83735; 85025; 87040; 87086; 87491; 87591; 96361; 96374; 96375; 96376; 99285; J0696; J1171; J2270; J2405; J2919

== ENCOUNTER → 2024-12-30 15:28 | Outpatient (BNV) | payer OTHER, SELFPAY | PROVIDERS: Emergency Provider Emergency Medicine; PCP Internal Medicine Geriatric Medicine; Visit Provider Radiology Vascular & Interventional Radiology | DX: N20.0 Calculus of kidney (principal); M61.452 Other calcification of muscle, left thigh | CPT/HCPCS: 74018; 76775 ==

== ENCOUNTER 2025-02-18 13:52 | Outpatient (REF) | payer OTHER, SELFPAY ==
--- OUTSIDE RECORDS SUMMARY | 2025-02-18 14:37 | XMS_ITS | Encounter Summary ---
Author Organization [employer] Address [address] [place] [address] Care Team Providers Care Income Auditor Name Role Phone Unavailable Primary Care Provider Unavailabl e Reason for Visit * Reason Onset Date Comments New Patient appt. 01/24/2025 Encounter Details Date Type Department Care Team ([facility] st Contact Info) Description 01/24/2025 Telephone [facility] MEDICINE [address], [place] [phone] Chris Madrid MD [address] [place], [place] [phone] New Patient appt. Social History Tobacco Use Types Packs/Day Years Used Date Smoking Tobacco: Never Assessed Housing Stability Answer Date Recorded What is your housing situation today? I have torri butler 02/15/[address] you li ve. Do you have problems with any of the following? None of the above 02/15/2025 Food Insecurity Answer Date Recorded Within the past 12 months, y ou worried that your food would run out before you got money to buy more: Never True 02/15/2025 Within the past 12 months,th e food you bought just didn't last and you didn't have enough money to get more: Never True Transportation Answer Date Recorded In the past 12 months, has l ack of transportation kept you from medical appts, meetings, work or from getting things needed for daily living? No 02/15/2025 Utilities Answer Date Recorded In the past 12 months, has t he electric, gas, oil or water company threatened to shut off services in your home? No 02/15/2025 Depression Answer Date Recorded Patient Health Questionnaire-2 Score 0 02/15/2025 Internet Access Answer Date Recorded Internet Access Q1 Yes 02/15/2025 Internet Access Q2 Not on file 02/15/2025 Sex and Gender Information Value Date Recorded Sex Assigned at Male 05/24/2022 10:37 AM EDT Legal Sex Male 10:37 AM EDT Gender Identity Male 02/18/2025 10:20 AM EDT Sexual Orientation Choose not to disclose 2024 10:20 AM EDT documented as of this encounter Miscellaneous Notes * Telephone Encounter - Yumiko Huizar - 02/14/2025 3:02 PM EDT Outgoing call to patient to book New Patient appt. Patient booked for 02/15/25 with RAINER Montes. *Wire Technician advised caller to arrive 15 minutes early for the visit. Caller was also informed to notifythe clinic if the visit is no longer needed. No-shows will be placed at the bottom of the scheduling list. Appt reminder and sent via text and mail. * Telephone Encounter - Yumiko Huizar - 01/24/2025 2:13 PM EDT Patient added to [facility] New Patient wait list as of 01/24/25. documented in this encounter Plan of Treatment Not on file documented as of this encounter Visit Diagnoses Not on filedocumented in this encounter
--- OUTSIDE RECORDS SUMMARY | 2025-02-18 14:37 | XMS_ITS | Clinical Summary ---
Author Organization [facility] Address [address] [place] [address] Phone Care Team Providers Care Software Firmware Engineer Name Role Phone Unavailable Primary Care Provider [...] 05/17/2011 05/17/2001, 07/24/1996, 04/23/1996, Additional history exists COVID-19 Vaccine ( - 2023- season) 2024 Influenza Vaccines (#1) 2025 HIB Vaccines Completed 09/21/1990 MMR Vaccines Completed [...]
--- OUTSIDE RECORDS SUMMARY | 2025-02-18 14:37 | XMS_ITS | Clinical Summary ---
Author Organization [facility] Address [address] [place] [address] Phone Care Team Providers Care Associate Professor Of Management Name Role Phone Physician, No Pcp Primary [...] 65 07/14/2024 3:08 AM EST Temperature 36.5 C (97.7 F) 07/14/2024 3:08 AM EST Respiratory Rate 18 07/14/2024 3:08 AM EST Oxygen Saturation 97% 07/14/2024 3:08 AM EST Inhaled Oxygen Concentration - - Weight 123 kg (271 lb 9.6 oz) 07/13/2024 5:09 PM EST Height 172.7 cm (5' 8 ) 07/13/2024 5:09 PM EST Body Mass Index 41.3 07/13/2024 5:09 PM EST Plan of Treatment Health Maintenance Due Date Last Done Comments COVID-19 Vaccine ( season) 2024 Cholesterol Screening (Lipid Panel) 07/14/2024 HIV Screening 07/14/2024 Hepatitis C Screening 07/14/2024 Social Influencers of Health Screening 07/14/2024 Depression Screening 07/25/2024 Influenza Vaccine (#1) 2025 DTaP,Tdap,and Td Vaccines (8 - Td or Tdap) 07/21/2027 07/21/2017, 05/17/2001, 07/24/1996, Additional history exists HIB Vaccines Completed 09/21/1990 MMR Vaccines Completed 09/21/1990, 10/22/1989 IPV Vaccines Completed 07/24/1996, 03/27, 05/24/1993, Additional history exists Meningococcal ACWY Vaccine Aged Out 12/11/2003 N o longer eligible based on patient's age to complete this topic Pneumococcal Vaccine: Pediatrics (0 to 5 Years) and At-Risk Patients (6 to 49 Years) Aged Out 12/11/2003 No longer eligible [...] age to complete this topic Care Teams Associate Professor Of Management Relationship Specialty Start Date End Date Physician, No Pcp PCP - General 07/13/24
[2025-02-18 16:12] LABS: MANUAL DIFF FLAG NO
[2025-02-18 16:20] LABS: Hematocrit 45.7 % (42.0-52.0); Hemoglobin 15.1 g/dl (14.0-18.0); Imm Gran Abs Auto 0.06 X10*3/uL (0.00-0.03); Imm Gran Pct Auto 0.6 % (0.0-0.4); Lymphocytes Absolute Auto 2.2 X10*3/uL (1.2-4.9); Mean Corpuscular HGB Conc 33.0 g/dl (31.0-36.0); Mean Corpuscular Hemoglobin 28.1 pg (27.0-33.0); Mean Corpuscular Volume 85.1 fL (80.0-98.0); NRBC Abs Auto 0.000 X10*3/uL (0.0-0.012); NRBC Pct Auto 0.0 /100WBC (0.0-0.2); Platelet Count 456 X10*3/uL (160-400); Red Blood Count 5.37 X10*6/uL (4.60-5.80); White Blood Count 10.4 X10*3/uL (4.8-10.8)
[2025-02-18 16:29] LABS: Hemoglobin A1C 146.9062 umol/L; Total Hemoglobin (HGBA1C) 3982.8220 umol/L
[2025-02-18 16:34] LABS: Alanine Aminotransferase 24 U/L (0-40); Albumin Level 4.4 g/dL (3.5-5.0); Alkaline Phosphatase 70 U/L (39-117); Anion Gap 12 (12-20); Aspartate Amino Transferase 22 U/L (5-37); Blood Urea Nitrogen 12 mg/dL (9-16); Calcium 9.4 mg/dL (8.4-10.2); Carbon Dioxide 29 mmol/L (22-29); Chloride 103 mmol/L (96-108); Cholesterol 210 mg/dL (<200); Estimated Glomerular Filt Rate > 60; HDL Cholesterol 45 mg/dL (>40); Potassium 4.3 mmol/L (3.3-5.1); Sodium 140 mmol/L (135-145); Total Protein 7.7 g/dL (6.5-8.0); Triglycerides 153 mg/dL (<150)
[2025-02-19 03:52] LABS: HIV Num 1 0.06 S/CO (0.00-0.99); ~HepC Num1 0.12 S/CO (0.00-0.79); ~Hepatitis C Antibody Nonreactive (Nonreactive)
== END 2025-02-18 13:53 | disposition home or self-care (01) ==
LOC: HO.HHCL 13:52
PROVIDERS: PCP Nurse Practitioner Family; Visit Provider Nurse Practitioner Family
DX: Z00.00 Encounter for general adult medical examination without abnormal findings (principal)
CPT/HCPCS: 36415; 80053; 80061; 83036; 85025; 86592; 86803; 87389